=== PATIENT | male | born 1945 | race Caucasian/White ===

== ENCOUNTER 2016-11-13 00:02 | Inpatient (IN) | payer MEDICARE, OTHER ==
--- NOTE | ~2016-11-13 | CN ---
Consultation Report [facility] [address] [place]. [address] NAME: ROLANDO FONTAINE : 41 STATUS : ADM IN [facility]#: [id number] AGE: 71 ADM/REG DATE : 11/13/16 MR#: [id number] REPORT SERV DATE: 11/13/16 DICTATED BY: RUSS RHODES DATE: 11/13/16 REPORT STATUS : Draft TRANSCRIBED BY: MODL DATE: 11/13/16 DATE OF CONSULTATION: 11/13/2016 CHIEF COMPLAINT: Chest and jaw pain. HISTORY OF PRESENT ILLNESS: Mr. Fontaine is a 71-year-old man with a history of prior coronary artery disease and chronic atrial fibrillation. He presented to the emergency room for chest and jaw pain which started last evening. He currently is pain-free. He is ruled out for myocardial infarction. His EKG shows atrial fibrillation with a mildly rapid rate but no acute ischemic changes. No symptoms of dyspnea. No syncope or presyncope. PAST MEDICAL HISTORY: 1. Hypertension. 2. Hypercholesterolemia. 3. Nonsustained ventricular tachycardia. 4. Chronic atrial fibrillation. 5. History of renal cell carcinoma, status post nephrectomy. SOCIAL HISTORY: He does not smoke or drink alcohol. FAMILY HISTORY: There is no family history of early coronary artery disease. REVIEW OF SYSTEMS: A complete review of systems was obtained, which is negative in detail except as mentioned above in the HPI. ALLERGIES: INTOLERANCE TO BETA JOEY DUE TO IMPOTENCE. MEDICATIONS: Include Coumadin 5 mg daily, fish oil, hydralazine 25 mg daily, hydrochlorothiazide 25 mg daily, multivitamin, omeprazole 20 mg daily, pravastatin 40 mg daily, verapamil extended release 240 mg a day. PHYSICAL EXAMINATION: VITAL SIGNS: Blood pressure 130/70, heart rate of 90s and irregular, respiratory rate of 14. GENERAL: Comfortable in no acute distress. HEENT: Anicteric. No xanthelasma. Lips without cyanosis. NECK: No JVD. Carotids 2+ and symmetric. No carotid bruits. LUNGS: CTA bilaterally. No wheezes or rhonchi. No accessory muscle use. COR: Irregularly irregular. Normal S1 and S2. ABD: Soft, nontender, nondistended. Normal bowel sounds. No abdominal bruits. EXT: No clubbing, cyanosis or edema 2+ and symmetric distal pulses. SKIN: Warm. Dry. No venous stasis changes. Consultation Report [facility] [address] [place]. [address] NAME: ROLANDO FONTAINE : 41 STATUS : ADM IN PAT#: [id number] AGE: 71 ADM/REG DATE : 11/13/16 MR#: [id number] REPORT SERV DATE: 11/13/16 DICTATED BY: RUSS RHODES DATE: 11/13/16 REPORT STATUS : Draft TRANSCRIBED BY: MODL DATE: 11/13/16 MS: No kyphosis. NEURO/PSYCH: Oriented x3. No anxiety or depression. LABORATORY STUDIES: INR of 2.4. Troponin is negative. White count of 7, hematocrit of 40. Creatinine of 1.6. EKG: A 12-lead EKG shows atrial fibrillation, rate of 82 beats per minute. Nonspecific T- wave abnormalities noted. IMPRESSION: This is a 71-year-old man with a history of hypertension, hypercholesterolemia, and chronic atrial fibrillation, on Coumadin and with a rate control strategy. He may need to have his verapamil increased from 240 to 360 mg daily for better rate control. So far, he has ruled out for myocardial infarction. I have recommended both an echocardiogram and a stress test. Further evaluation pending these studies. JOHN/FATEMEH Russ Rhodes M.D. / [id number] CC: Kavya Carter M.D.
--- NOTE | ~2016-11-13 | HP ---
History And Physical [facility] [place]. [address] NAME: ROLANDO WICK : 41 STATUS : ADM Twan PAT#: [id number] AGE: 71 ADM/REG DATE : 11/13/16 MR#: [id number] REPORT SERV DATE: 11/13/16 DICTATED BY: LAY DOUGLAS DATE: 11/13/16 REPORT STATUS : Draft TRANSCRIBED BY: MODL DATE: 11/13/16 DATE OF ADMISSION: 11/13/2016 CHIEF COMPLAINT: A 71-year-old male presenting with jaw pain and chest pain. HISTORY OF PRESENTING ILLNESS: The patient's history was obtained through careful interview with the patient, , and two daughters, coupled with review of [facility] medical records. Just on the night leading up to admission, the patient developed new right-sided jaw pain that did radiate into the left throat on the top of the left chest. Had throbbing quality, "worse than a toothache," 12/10 severity. He has had no shortness of breath, but he has had dizziness and "lost my bearings," and has had nausea and one episode of vomiting. There is no heaviness over the chest. No abdominal pain. No palpitations. He states "my head does not feel good," but there is no actual headache or lightheadedness (despite the dizziness that he describes). REVIEW OF SYSTEMS: Otherwise, a 14-point review of systems was obtained and was negative. PAST MEDICAL HISTORY: 1. Coronary artery disease? but he states he has never had a stent placed. He has been followed by Dr. Baron. 2. Atrial fibrillation, on chronic Coumadin. 3. Hematuria, followed by Dr. Roberts. 4. Benign prostatic hypertrophy. 5. Elevated cholesterol. 6. Gastroesophageal reflux disorder. 7. Left renal cell carcinoma in 2012, status post surgical resection. 8. Colon cancer, 2004, status post surgical resection, now followed by Dr. River. 9. Chronic kidney disease stage 3. Baseline creatinine of 1.3 to 1.7. PAST SURGICAL HISTORY: 1. Partial colectomy for colon cancer. 2. Left renal cell carcinoma, nephrectomy. 3. Adrenalectomy on the left side. 4. TURP. 5. Right hand surgery x2. ALLERGIES: OXYBUTYNIN. SOCIAL HISTORY: No tobacco abuse. No alcohol abuse. Lives in [place], [place]. Is History And Physical [address] [address] NAME: ROLANDO WICK : 41 STATUS : ADM Twan PAT#: [id number] AGE: 71 ADM/REG DATE : 11/13/16 MR#: [id number] REPORT SERV DATE: 11/13/16 DICTATED BY: LAY DOUGLAS DATE: 11/13/16 REPORT STATUS : Draft TRANSCRIBED BY: FATEMEH DATE: 11/13/16 . Has two children. 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 FAMILY HISTORY: Mother at 85 years of age. Father with stroke. CURRENT MEDICATIONS: Include Tylenol, eye drops, capsaicin pad, hydrochlorothiazide 25 mg p.o. daily, hydralazine 75 mg p.o. b.i.d., omega-3 fatty acids, omeprazole 20 mg p.o. daily, potassium 20 mEq p.o. b.i.d., Pravachol 40 mg p.o. daily, verapamil sustained release 240 mg p.o. daily, Coumadin 1 mg as needed and 5 mg in the evening. PHYSICAL EXAMINATION: VITAL SIGNS: Temperature 98.2, pulse 70, blood pressure 172/98, respiratory rate 18, and O2 saturation 98% on room air. GENERAL: A pleasant, cooperative male still having jaw pain. HEENT: The jaw pain is not reproduced by palpation of his jaw and there is no swelling around his jaw or anything on oral examination to suggest dental caries or dental abscess for example. Pupils equal, round, and reactive to light. No conjunctival pallor. No scleral icterus. Nares are patent. Oropharynx is clear of obstruction. Moist mucous membranes. NECK: Trachea midline. No thyromegaly. LYMPH: No cervical lymphadenopathy. No supraclavicular lymphadenopathy. RESPIRATORY: Clear to auscultation at bases. No wheezes, rales, or rhonchi. Normal respiratory effort. CARDIOVASCULAR: Irregularly irregular. No murmurs, rubs, or gallops. No extremity edema is appreciated. ABDOMEN: Soft, nontender, nondistended. Normal bowel sounds auscultated throughout. No hepatosplenomegaly. DERMATOLOGICAL: Warm and dry extremities. No pallor, no cyanosis. PSYCHIATRIC: Notably flat affect. Irritable mood. Alert and oriented x3. LABORATORY DATA: INR 2.4. Troponin negative. Liver enzymes within normal limits. White blood cell count 7.0, hemoglobin 13, hematocrit 40, platelets 200. Sodium 143, potassium 3.4, chloride 106, bicarb 31, BUN 23, creatinine 1.6, glucose 104. Urinalysis negative for infection. STUDIES: 1. Chest x-ray by my own evaluation shows cardiomegaly, but no definite acute cardiopulmonary process. 2. EKG by my own evaluation shows atrial fibrillation, incomplete right bundle-branch block, left anterior fascicular block. ASSESSMENT AND PLAN: 1. Chest pain, jaw pain. Check stress test. Add aspirin. 2. Atrial fibrillation, chronic. Check telemetry. Continue Coumadin. 3. Chronic kidney disease stage 3 with solitary kidney. Monitor closely. 4. Hypokalemia. Replace potassium. Check magnesium. History And Physical [address] [address] NAME: ROLANDO WICK : 41 STATUS : ADM Twan PAT#: [id number] AGE: 71 ADM/REG DATE : 11/13/16 MR#: [id number] REPORT SERV DATE: 11/13/16 DICTATED BY: LAY DOUGLAS DATE: 11/13/16 REPORT STATUS : Draft TRANSCRIBED BY: FATEMEH DATE: 11/13/16 KPL/FATEMEH Lay Douglas M.D. / [id number] CC: Monroe Esqueda MD William Warren, M.D.
--- NOTE | ~2016-11-13 | CN ---
Consultation Report [facility] [address] [place]. [address] NAME: ROLANDO FONTAINE : 41 STATUS : ADM IN [facility]#: [id number] AGE: 71 ADM/REG DATE : 11/13/16 MR#: [id number] REPORT SERV DATE: 11/14/16 DICTATED BY: DONAL MARIN DATE: 11/14/16 REPORT STATUS : Draft TRANSCRIBED BY: MODL DATE: 11/14/16 NEPHROLOGY CONSULTATION DATE OF CONSULTATION: 11/14/2016 INDICATION FOR CONSULTATION: CKD 3 with solitary kidney and need for cardiac cath. HISTORY OF PRESENT ILLNESS: Mr. Fontaine is a 71-year-old male who presented to the emergency room with chest pain and jaw pain that occurred spontaneously at rest. He has subsequently undergone echocardiogram with ejection fraction that had decreased to 32% and has undergone a nuclear cardiac scan. He is now scheduled for cardiac cath when his INR is corrected. He has been on chronic Coumadin therapy for atrial fibrillation. His creatinine ranged between 1.37 to 1.66 during this hospitalization. He underwent left nephrectomy and adrenalectomy in 2012 for renal cell carcinoma. MEDICATIONS: Include hydrochlorothiazide and omeprazole. PAST MEDICAL HISTORY: CKD stage 3, baseline creatinine 1.3 to 1.6, status post left nephrectomy for renal cell cancer in 2012, atrial fibrillation on chronic Coumadin therapy, hypertension, hyperlipidemia, cardiomyopathy ejection fraction of 32%, colon cancer, status post resection of skin cancers, herniorrhaphy, gastroesophageal reflux disease, BPH requiring TURP, multiple drug intolerances. FAMILY HISTORY: Father at age 66 with history of hypertension, CVA, with cause of being CVA. Paternal father with hypertension. Paternal uncles with hypertension. No history of end-stage renal disease. SOCIAL HISTORY: The patient is with good family support. No use of alcohol, drugs, or tobacco products. He is a retired cable worker helper. ALLERGIES: TO NEXIUM AND DITROPAN. HOME MEDICATIONS: Refresh eyedrops, capsaicin topical patch, hydrochlorothiazide, Apresoline, ketorolac ophthalmic solution, ofloxacin ophthalmic solution, fish oil, omeprazole, potassium, Pravachol, prednisone, prednisolone ophthalmic solution, verapamil SR, Coumadin. REVIEW OF SYSTEMS: HEENT: Eyes, no change in visual acuity. No epistaxis. No otic infection. No pharyngitis. PULMONARY: Notes occasional shortness of breath. No hemoptysis. CARDIAC: Recent chest pain. No lower extremity edema. GI: No nausea, vomiting, or melena. : No gross hematuria, dysuria, pyuria. Consultation Report [facility] [address] [place]. [address] NAME: ROLANDO FONTAINE : 41 STATUS : ADM IN [facility]#: [id number] AGE: 71 ADM/REG DATE : 11/13/16 MR#: [id number] REPORT SERV DATE: 11/14/16 DICTATED BY: DONAL MARIN DATE: 11/14/16 REPORT STATUS : Draft TRANSCRIBED BY: MODL DATE: 11/14/16 MUSCULOSKELETAL: Pain in knees. INTEGUMENT: No rash. No itching. NEUROLOGIC: No seizure activity or lateralizing weakness. Remainder of 12-point review of systems is negative. PHYSICAL EXAMINATION: VITAL SIGNS: Blood pressure 137/75, temp 99.4, respiratory rate 16, and pulse 68. HEENT: Eyes, no scleral icterus. Pupils equal, reactive to light. Extraocular movement intact. Nares patent. No discharge. Throat, no injection. Mucous membranes are moist. NECK: No thyromegaly, masses, bruits. CHEST/LUNGS: Late crackles posteriorly. No dullness to percussion. No wheezes. CARDIAC: Regular rate and rhythm. Questionable 1/6 systolic ejection murmur. No gallop or rub. ABDOMEN: Supple. Normoactive bowel sounds. Nontender. No hepatosplenomegaly. /RECTAL: Not performed. EXTREMITIES: No edema. DERMIS: No rash. No skin lesions. NEUROLOGIC: Cranial nerves intact. No lateralizing weakness. MUSCULOSKELETAL: No deformity. No joint effusion. IMPRESSION: 1. Chronic kidney disease stage 3, with solitary functioning right kidney. 2. Chest pain, possible acute coronary syndrome. 3. Status post left nephrectomy for renal cell cancer in 2012. 4. Atrial fibrillation. Coumadin held for cardiac cath. Vitamin K administered. 5. Hypertension. 6. Dyslipidemia. 7. Cardiomyopathy, ejection fraction of 32%. 8. Colon cancer, status post resection. 9. Herniorrhaphy. 10.Gastroesophageal reflux disease. 11.Benign prostatic hyperplasia, status post TURP. PLAN: 1. Okay for catheterization. 2. IV fluids. 3. Mucomyst. 4. Labs. CG/MODL Donal Consultation Report [facility] [address] [place] [address] NAME: ROLANDO FONTAINE : 41 STATUS : ADM IN PAT#: [id number] AGE: 71 ADM/REG DATE : 11/13/16 MR#: [id number] REPORT SERV DATE: 11/14/16 DICTATED BY: DONAL MARIN DATE: 11/14/16 REPORT STATUS : Draft TRANSCRIBED BY: MODL DATE: 11/14/16 Monroe Marin / [id number] CC: Monroe Esqueda MD
--- NOTE | ~2016-11-13 | CN ---
Consultation Report [facility] [address] [place]. [address] NAME: ROLANDO WICK : 41 STATUS : DIS IN PAT#: [id number] AGE: 71 ADM/REG DATE : 11/13/16 MR#: [id number] REPORT SERV DATE: 11/17/16 DICTATED BY: ALY GOODMAN DATE: 11/17/16 REPORT STATUS : Draft TRANSCRIBED BY: MODL DATE: 11/17/16 INFECTIOUS DISEASE CONSULT DATE OF CONSULTATION: REASON FOR REFERRAL: Evaluation and treatment of possible arm infection. HISTORY OF PRESENT ILLNESS: This patient is a 71-year-old male with a history of hyperlipidemia, chronic renal insufficiency, colon cancer which was resected in 2004 with normal followup since then. He has chronic atrial fibrillation, for which he is on Coumadin, and has coronary artery disease, though he has not had any interventions in the past. He came in with pain that had been going on for several days in his right jaw. It was exacerbated by movement of opening the jaw. He denied any trauma or injury to that area. There is nothing visible on the outer skin. Because the pain was radiating down into his shoulder and chest, he had potential heart disease focused on his possible etiology first and underwent a workup with no findings of ischemia or myocardial infarction. He was thought to be ready to go home, though he was still complaining of the pain yesterday, when he had a fever and began to complain of pain in his left arm antecubital fossa at the site of an old IV, it was warm and red, was imaged, and no abscess was found. He was started on vancomycin and cefepime. He has had no more fever and feels like the arm is better today, but the pain continues in his jaw. PAST MEDICAL HISTORY: Otherwise, unremarkable. MEDICATIONS: As described above. ALLERGIES: FAR ANTIBIOTICS, HE HAS NO KNOWN ANTIMICROBIAL ALLERGIES. SOCIAL HISTORY: He is retired, . His was with him in the room. He is a nonsmoker. Has no history of alcohol or substance abuse. FAMILY HISTORY: Noncontributory. PHYSICAL EXAMINATION: GENERAL: Nontoxic, elderly male, in no acute distress. Alert and oriented x3. VITAL SIGNS: Temperature today 99, pulse 98, respirations 16, and blood pressure 170/95. Weight 92 kg. HEENT: Sclerae are clear. No lesions within the mouth. He does have popping in the TMJ when he opens his jaw, but I do not feel any mass. There is no visible warmth or redness exteriorly. NECK: Supple without lymphadenopathy. LUNGS: Clear. HEART: Regular rate and rhythm. ABDOMEN: Soft, nontender. Positive bowel sounds. Consultation Report [facility] [address] [place]. [address] NAME: ROLANDO WICK : 41 STATUS : DIS IN PAT#: [id number] AGE: 71 ADM/REG DATE : 11/13/16 MR#: [id number] REPORT SERV DATE: 11/17/16 DICTATED BY: ALY GOODMAN DATE: 11/17/16 REPORT STATUS : Draft TRANSCRIBED BY: FATEMEH DATE: 11/17/16 EXTREMITIES: In the left antecubital fossa, there is some mild warmth and redness, some firmness around the vein, but no fluctuance. No cord. He has some bruising around the IV in the right antecubital fossa. LABORATORY DATA: White blood cell count 6.5, hematocrit 32.6, and platelets 201, normal differential on the white blood cell count. BUN and creatinine are 19 and 1.33. Blood cultures taken yesterday are negative. IMPRESSION: 1. Fever. I feel it is due to thrombophlebitis that is most likely a chemical process due to an infiltrated IV and I doubt it is actually infected. 2. Jaw pain. I do not think this is related to an infection, possibly a problem in his temporomandibular joint. RECOMMENDATIONS: 1. Stop antibiotics. After the next dose, we will substitute Zyvox for vancomycin, discontinue the cefepime, and then remove the IV. 2. Agree with the CT of the jaw, and then if nothing acute is seen, I feel that he could be discharged later today. 3. Followup with me will be pjermaine MARTINEZ/FATEMEH Aly Goodman M.D. / [id number] CC: Monroe Esquedaegler, MD
--- NOTE | ~2016-11-13 | DS ---
Discharge Summary [facility] [address] [place]. [address] NAME: ROLANDO WICK : 41 STATUS : DIS IN PAT#: [id number] AGE: 71 ADM/REG DATE : 11/13/16 MR#: [id number] REPORT SERV DATE: 11/17/16 DICTATED BY: SHARON DO DATE: 11/17/16 REPORT STATUS : Draft TRANSCRIBED BY: MODL DATE: 11/17/16 ADMISSION DATE: 11/13/2016 DISCHARGE DATE: 11/17/2016 DIAGNOSES ON ADMISSION: 1. Chest pain and jaw pain. 2. Atrial fibrillation, chronically on Coumadin. 3. Chronic kidney disease stage 3 with solitary kidney. 4. Hypokalemia. 5. History of partial colectomy for colon cancer in the past. 6. History of left renal cell carcinoma, status post nephrectomy. 7. History of adrenalectomy on the left side. DIAGNOSES ON DISCHARGE: 1. New-onset congestive heart failure, nonischemic cardiomyopathy with an ejection fraction of 35%, status post coronary arteriogram showing nonischemic cardiomyopathy, no blockages in the heart. 2. Right-sided jaw pain, improved. Negative CT scan on the jaw. If continues, follow up with Dr. Givens and with oral dental surgeon outpatient. 3. Left arm cellulitis in the antecubital fossa secondary to IV, improved. 4. Fever secondary to cellulitis, resolved. 5. Chronic kidney disease, creatinine at baseline. 6. Atrial fibrillation, rate controlled. 7. Anticoagulation with Coumadin for atrial fibrillation, continue. 8. Hypertension, controlled. IMAGING STUDIES DONE DURING THIS HOSPITALIZATION: 1. Stress test done on 11/13/2016 showed decreased ejection fraction, but no evidence of ischemia, although coronary arteriogram, no evidence of any blockages. 2. Left upper extremity venous duplex ultrasound showed superficial thrombosis on the left upper extremity on the distal cephalic vein secondary to IV. 3. CT of the brain done on 11/17/2016, no acute intracranial pathology. 4. CT of the face including right-sided temporomandibular joint, no acute intracranial pathology, normal facial bones, no abnormality in the temporomandibular joints. 5. Chest x-ray on 11/16 showed some volume overload with a CHF pattern. CONSULTANTS ON THE CASE: Feed Mill Tender, Dr. Baron and Dr. Marinelli, and also Dr. Nunez, cheese production supervisor before coronary arteriography, and Dr. Barry was asked to see the patient for fever secondary to superficial cellulitis on the left upper extremity. HISTORY OF PRESENT ILLNESS: Briefly, this is a very pleasant 71-year-old male, who was admitted by my colleague, Dr. Lopez, on 11/13/2016 with chest pain and jaw pain. For the details, see history of present illness dictated by Dr. Lopez on 11/13/2016. HOSPITAL COURSE: Briefly, the patient was seen by me next day, and also prospecting observer was consulted. There was a concern of acute coronary syndrome, so the patient had stress test Discharge Summary [address] [place]. [address] NAME: ROLANDO WICK : 41 STATUS : DIS IN PAT#: [id number] AGE: 71 ADM/REG DATE : 11/13/16 MR#: [id number] REPORT SERV DATE: 11/17/16 DICTATED BY: SHARON DO DATE: 11/17/16 REPORT STATUS : Draft TRANSCRIBED BY: FATEMEH DATE: 11/17/16 done per prospecting observer, Dr. Baron and it came back a moderate risk and he was also found to have new-onset congestive heart failure, systolic dysfunction. Dr. Baron recommended coronary arteriogram, which was done next day, and it did not show any blockages, as well as prospecting observer, Dr. Marinelli rounded on the patient next day and Dr. Marinelli recommended the patient to change his verapamil SR to 120 mg p.o. twice a day, instead of 240 daily which he was taking before, as well as he recommended to increase his Coreg to 12.5 p.o. b.i.d., but the patient was reluctant to take Coreg 12.5 b.i.d., he wanted to continue taking 6.25 p.o. b.i.d. It was explained to the patient that Coreg is necessary for heart rate control, he still wants to be on 6.25 p.o. b.i.d. It was explained to his and daughter that if necessary, to take in that dose. The patient said that they will measure heart rate and blood pressure and try to control it and if necessary, they will increase to 12.5 p.o. b.i.d. Also, Dr. Marinelli recommended the patient to be on Imdur 30 mg a day and continue hydralazine at 75 mg p.o. b.i.d. The patient reported that his blood pressure was fluctuating at home. I told the patient that he needs to measure his blood pressures three times a day and he needs to take his hydralazine depending on his blood pressure. It was recommended to hold hydralazine if systolic blood pressure less than 120, to take half of the pill if it is less than 140, and to take the full dose if it is above. Also, Dr. Marinelli did not recommend to continue spironolactone. It was recommended to continue his Coumadin at a home dose of 5 mg a day and check PT/INR per Dr. Miya Givens on Saturday. Continue his ofloxacin ophthalmic drops four times a day. Continue omega-3 fatty acids, pravastatin 40 a day, prednisolone Forte one drop four times a day, Coumadin 5 mg a day and additional 1 mg as needed, verapamil SR 120 p.o. b.i.d., Coreg 12.5 p.o. b.i.d., hydralazine 75 p.o. b.i.d., HCTZ 25 mg a day, ketorolac ophthalmic drops four times a day, artificial tears daily, potassium 20 mEq p.o. b.i.d., Tylenol 1300 twice a day, omeprazole 20 a day, and capsaicin patch daily. He needs to follow up with Dr. Baron on 12/13. Regarding the patient's jaw pain, the patient was complaining of jaw pain since the admission, but there was not any infection found and the patient had a CT scan on the jaw, which did not show any abnormality. Today, his jaw pain resolved. He still says that he may have some discomfort later. He was recommended to follow up with Dr. Givens and also with oral dental surgeon to evaluate his jaw if the pain will continue on the right side. Chronic atrial fibrillation was rate controlled. Chronic kidney disease, creatinine was in stable range after coronary arteriogram. He was evaluated by cheese production supervisor before coronary arteriogram. Creatinine looks good. Left arm cellulitis, which started yesterday. It was related to peripheral IV. There was a mild superficial clot on ultrasound, but there was no deep vein thrombosis. The patient had fever spikes yesterday, and he was started on intravenous antibiotics as well as blood cultures were drawn yesterday and the results came back negative today. Today, his fever resolved. One of the blood cultures still pending, so we will follow up on it tomorrow. His fever resolved. Dr. Barry saw this patient today in consult as Infectious Disease. He recommended to discontinue cefepime and vancomycin, gave him one dose of Zyvox, and he recommended the patient to be discharged today. If any fever or any increase in swelling or Discharge Summary [facility] [address] [facility] [place]. [address] NAME: ROLANDO WICK : 43 STATUS : DIS IN PAT#: [id number] AGE: 71 ADM/REG DATE : 11/13/16 MR#: [id number] REPORT SERV DATE: 11/17/16 DICTATED BY: SHARON DO DATE: 11/17/16 REPORT STATUS : Draft TRANSCRIBED BY: FATEMEH DATE: 11/17/16 redness, the patient was recommended to follow up with his primary care physician or to come to emergency room. I had a long discussion with the patient, his daughter, and his regarding the plan of treatment regarding his blood pressure medications and regarding potassium supplementation. It was also recommended the patient to follow up with Dr. Miya Givens on 11/19/2016, to check a BMP, potassium level, specifically kidney function, and also check PT and INR. The patient was discharged in stable condition. There was not any shortness of breath. He was recommended also to be on a fluid restriction. I spent 45 minutes on discharge. DICTATED BY: Monroe Esqueda/FATEMEH Sharon Do M.D. / [id number] CC: Monroe Esqueda MD William Warren, M.D.
[~2016-11-13 00:02] MED LIST: ALEVE220 MG PO; ARTHRITIS TOP; ASAB PO; ATEN25 PO; C25 PO; C5; DSS PO; FLOMAX4 PO; HYDROCHLOROT25 MG PO; LOP25 PO; LOTE40 PO; NATURA2 OPH; PCET PO; PERCOCET1 TA2 PO; PRAVAC PO; PRAVACHOL40 MG PO; PRILO PO; SEV VITAMINS PO; T PO; VERELAN360 MG PO
[2016-11-13] MEDS ORDERED: VERELAN240 MG PO (00:33)
[2016-11-13] MEDS ORDERED: HYDROCHLOROT25 MG PO (00:34)
[2016-11-13] MEDS ORDERED: APRES50 PO (00:34)
[2016-11-13] MEDS ORDERED: PRAVACHOL40 MG PO (00:34)
[2016-11-13] MEDS ORDERED: C5 PO (00:35)
[2016-11-13] MEDS ORDERED: C1 PO (00:36)
[2016-11-13] MEDS ORDERED: ACULAR OPH (00:37)
[2016-11-13] MEDS ORDERED: OCUFLOX OPH (00:37)
[2016-11-13] MEDS ORDERED: REFRESH OPH SO0.3 ML OPH (00:38)
[2016-11-13] MEDS ORDERED: 8 HOUR650 MG PO (00:39)
[2016-11-13] MEDS ORDERED: PREDFORTE OPH (00:39)
[2016-11-13] MEDS ORDERED: KDUR20 PO (00:39)
[2016-11-13] MEDS ORDERED: FISH OIL1200 MG PO (00:39)
[2016-11-13] MEDS ORDERED: PRILOSEC OTC20 MG PO (00:40)
[2016-11-13] MEDS ORDERED: SALONPAS-HOT TOP (00:41)
[2016-11-13 00:55] LABS: CPK 90 U/L (0-200); TROPONIN I <0.02 NG/ML (<0.05)
[2016-11-13 00:58] LABS: CK-MB 1.4 NG/ML
[2016-11-13 06:45] LABS: BASOPHILS 0.1 %; BASOPHILS ABSOLUTE 0.01 10/3/uL (0.0-0.16); EOSINOPHILS 0.1 %; EOSINOPHILS ABSOLUTE 0.01 10/3/uL (0.0-0.53); HEMATOCRIT 39.3 % (40.0-51.0); HEMOGLOBIN 13.2 g/dL (13.6-17.8); IMMATURE GRANULOCYTES 0.3 %; IMMATURE GRANULOCYTES ABSOLUTE 0.03 10/3/uL (0.0-0.11); LYMPHOCYTES 6.4 %; LYMPHOCYTES ABSOLUTE 0.62 10/3/uL (0.67-4.30); MANUAL DIFF NO %; MEAN CORPUS HGB CONC 33.6 g/dL (32.0-36.0); MEAN CORPUSCULAR HEMOGLOB 30.8 pg (26.0-34.0); MEAN CORPUSCULAR VOLUME 91.8 fL (80-100); MEAN PLATELET VOLUME 10.3 fL (9.2-13.0); MONOCYTES 9.1 %; MONOCYTES ABSOLUTE 0.89 10/3/uL (0.21-1.20); NEUTROPHILS ABSOLUTE 8.18 10/3/uL (2.02-8.40); PLATELET COUNT 198 10/3/uL (150-400); RBC DISTRIBUTION WIDTH 14.2 % (12.0-16.0); RED CELL COUNT 4.28 10/6/uL (4.7-6.1); WHITE BLOOD CELLS 9.7 10/3/uL (4.5-10.5)
[2016-11-13 06:51] LABS: INTERNATIONAL NORMAL RATI 2.3 UNITS (-)
[2016-11-13 06:52] LABS: PARTIAL THROMBO TIME 38.7 SEC (22.5-37.2); PROTIME (NOT ORD) 24.9 SEC (12.0-14.5)
[2016-11-13 07:11] LABS: A/G RATIO 1.1 (0.7-1.9); ALBUMIN 3.5 G/DL (3.5-5.0); ALKALINE PHOSPHATASE 66 U/L (45-117); BUN (BLOOD UREA NITROGEN) 20 MG/DL (6-23); CHLORIDE, SERUM 104 MMOL/L (96-112); CO2 (CARBON DIOXIDE) 31 MMOL/L (24-34); CREATININE 1.37 MG/DL (0.70-1.30); GFR AFRICAN AMERICAN 59 ML/MIN (>=60); GFR NON AFRICAN AMERICAN 51 ML/MIN (>=60); GLOBULIN 3.3 G/DL (2.5-4.1); GLUCOSE, SERUM 157 MG/DL (60-99); POTASSIUM, SERUM 3.5 MMOL/L (3.5-5.3); SGOT(AST) 14 U/L (5-40); SGPT(ALT) 25 U/L (5-65); SODIUM, SERUM 142 MMOL/L (135-148); TOTAL BILIRUBIN 0.6 MG/DL (0-1.2); TOTAL PROTEIN 6.8 G/DL (6.0-8.5); TROPONIN I 0.02 NG/ML (<0.05); ULTRASENSITIVE TSH 0.448 MCIU/ML (0.358-3.740)
[2016-11-14 04:33] LABS: BASOPHILS 0.2 %; BASOPHILS ABSOLUTE 0.02 10/3/uL (0.0-0.16); EOSINOPHILS 0.1 %; EOSINOPHILS ABSOLUTE 0.01 10/3/uL (0.0-0.53); HEMATOCRIT 37.9 % (40.0-51.0); HEMOGLOBIN 12.7 g/dL (13.6-17.8); IMMATURE GRANULOCYTES 0.2 %; IMMATURE GRANULOCYTES ABSOLUTE 0.02 10/3/uL (0.0-0.11); LYMPHOCYTES 11.6 %; LYMPHOCYTES ABSOLUTE 1.11 10/3/uL (0.67-4.30); MEAN CORPUS HGB CONC 33.5 g/dL (32.0-36.0); MEAN CORPUSCULAR HEMOGLOB 30.9 pg (26.0-34.0); MEAN CORPUSCULAR VOLUME 92.2 fL (80-100); MEAN PLATELET VOLUME 10.1 fL (9.2-13.0); MONOCYTES 18.6 %; MONOCYTES ABSOLUTE 1.78 10/3/uL (0.21-1.20); NEUTROPHILS 69.3 %; NEUTROPHILS ABSOLUTE 6.65 10/3/uL (2.02-8.40); PLATELET COUNT 177 10/3/uL (150-400); RBC DISTRIBUTION WIDTH 14.3 % (12.0-16.0); RED CELL COUNT 4.11 10/6/uL (4.7-6.1); WHITE BLOOD CELLS 9.6 10/3/uL (4.5-10.5)
[2016-11-14 04:35] LABS: MANUAL DIFF NO %
[2016-11-14 04:43] LABS: INTERNATIONAL NORMAL RATI 2.4 UNITS (-); PROTIME (NOT ORD) 26.3 SEC (12.0-14.5)
[2016-11-14 04:51] LABS: CALCIUM, SERUM 8.5 MG/DL (8.5-10.4); CHLORIDE, SERUM 101 MMOL/L (96-112); CHOL/HDL RATIO(NOT ORDER) 1.9 (0-5); CHOLESTEROL 86 MG/DL (< 200); CO2 (CARBON DIOXIDE) 27 MMOL/L (24-34); CREATININE 1.66 MG/DL (0.70-1.30); GFR AFRICAN AMERICAN 47 ML/MIN (>=60); GFR NON AFRICAN AMERICAN 40 ML/MIN (>=60); HDL CHOLESTEROL 46 MG/DL (> 39); LDL CHOLESTEROL 28 MG/DL (< 130); NON-HDL CHOLESTEROL 40 MG/DL (< 160); POTASSIUM, SERUM 3.5 MMOL/L (3.5-5.3); SODIUM, SERUM 136 MMOL/L (135-148); TRIGLYCERIDE 60 MG/DL (< 150)
[2016-11-14 04:56] LABS: BUN (BLOOD UREA NITROGEN) 24 MG/DL (6-23); GLUCOSE, SERUM 108 MG/DL (60-99)
[2016-11-14 23:18] LABS: TROPONIN I 0.02 NG/ML (<0.05)
[2016-11-14 23:19] LABS: CK-MB < 0.5 NG/ML; CPK 56 U/L (0-200)
[2016-11-15 03:58] LABS: BASOPHILS 0.1 %; BASOPHILS ABSOLUTE 0.01 10/3/uL (0.0-0.16); EOSINOPHILS 0.6 %; EOSINOPHILS ABSOLUTE 0.05 10/3/uL (0.0-0.53); HEMOGLOBIN 11.8 g/dL (13.6-17.8); IMMATURE GRANULOCYTES 0.4 %; IMMATURE GRANULOCYTES ABSOLUTE 0.03 10/3/uL (0.0-0.11); LYMPHOCYTES 8.9 %; LYMPHOCYTES ABSOLUTE 0.76 10/3/uL (0.67-4.30); MEAN CORPUS HGB CONC 33.7 g/dL (32.0-36.0); MEAN CORPUSCULAR HEMOGLOB 30.6 pg (26.0-34.0); MEAN CORPUSCULAR VOLUME 90.9 fL (80-100); MEAN PLATELET VOLUME 9.9 fL (9.2-13.0); MONOCYTES 16.5 %; MONOCYTES ABSOLUTE 1.41 10/3/uL (0.21-1.20); NEUTROPHILS 73.5 %; NEUTROPHILS ABSOLUTE 6.29 10/3/uL (2.02-8.40); PLATELET COUNT 166 10/3/uL (150-400); RBC DISTRIBUTION WIDTH 13.7 % (12.0-16.0); RED CELL COUNT 3.85 10/6/uL (4.7-6.1); WHITE BLOOD CELLS 8.6 10/3/uL (4.5-10.5)
[2016-11-15 03:59] LABS: MANUAL DIFF NO %
[2016-11-15 04:04] LABS: INTERNATIONAL NORMAL RATI 1.6 UNITS (-)
[2016-11-15 04:08] LABS: PROTIME (NOT ORD) 18.5 SEC (12.0-14.5)
[2016-11-15 04:20] LABS: BUN (BLOOD UREA NITROGEN) 25 MG/DL (6-23); CALCIUM, SERUM 8.6 MG/DL (8.5-10.4); CHLORIDE, SERUM 102 MMOL/L (96-112); CHOL/HDL RATIO(NOT ORDER) 2.3 (0-5); CHOLESTEROL 93 MG/DL (< 200); CO2 (CARBON DIOXIDE) 27 MMOL/L (24-34); CREATININE 1.59 MG/DL (0.70-1.30); GFR AFRICAN AMERICAN 49 ML/MIN (>=60); GFR NON AFRICAN AMERICAN 42 ML/MIN (>=60); GLUCOSE, SERUM 116 MG/DL (60-99); HDL CHOLESTEROL 41 MG/DL (> 39); LDL CHOLESTEROL 40 MG/DL (< 130); NON-HDL CHOLESTEROL 52 MG/DL (< 160); POTASSIUM, SERUM 3.9 MMOL/L (3.5-5.3); SODIUM, SERUM 136 MMOL/L (135-148); TRIGLYCERIDE 60 MG/DL (< 150)
[2016-11-16 05:08] LABS: BASOPHILS 0.1 %; BASOPHILS ABSOLUTE 0.01 10/3/uL (0.0-0.16); EOSINOPHILS 0.8 %; EOSINOPHILS ABSOLUTE 0.06 10/3/uL (0.0-0.53); HEMATOCRIT 35.6 % (40.0-51.0); HEMOGLOBIN 11.9 g/dL (13.6-17.8); IMMATURE GRANULOCYTES 0.3 %; IMMATURE GRANULOCYTES ABSOLUTE 0.02 10/3/uL (0.0-0.11); LYMPHOCYTES 10.4 %; LYMPHOCYTES ABSOLUTE 0.76 10/3/uL (0.67-4.30); MEAN CORPUS HGB CONC 33.4 g/dL (32.0-36.0); MEAN CORPUSCULAR HEMOGLOB 30.8 pg (26.0-34.0); MEAN CORPUSCULAR VOLUME 92.2 fL (80-100); MEAN PLATELET VOLUME 9.9 fL (9.2-13.0); MONOCYTES 13.5 %; MONOCYTES ABSOLUTE 0.99 10/3/uL (0.21-1.20); NEUTROPHILS 74.9 %; NEUTROPHILS ABSOLUTE 5.48 10/3/uL (2.02-8.40); PLATELET COUNT 181 10/3/uL (150-400); RBC DISTRIBUTION WIDTH 13.7 % (12.0-16.0); RED CELL COUNT 3.86 10/6/uL (4.7-6.1); WHITE BLOOD CELLS 7.3 10/3/uL (4.5-10.5)
[2016-11-16 05:09] LABS: MANUAL DIFF NO %
[2016-11-16 05:22] LABS: ALBUMIN 2.9 G/DL (3.5-5.0); CALCIUM, SERUM 8.8 MG/DL (8.5-10.4); CHLORIDE, SERUM 102 MMOL/L (96-112); CO2 (CARBON DIOXIDE) 28 MMOL/L (24-34); CREATININE 1.35 MG/DL (0.70-1.30); GFR AFRICAN AMERICAN 60 ML/MIN (>=60); GFR NON AFRICAN AMERICAN 52 ML/MIN (>=60); GLUCOSE, SERUM 103 MG/DL (60-99); POTASSIUM, SERUM 3.9 MMOL/L (3.5-5.3); SODIUM, SERUM 135 MMOL/L (135-148)
[2016-11-16 05:23] LABS: BUN (BLOOD UREA NITROGEN) 21 MG/DL (6-23); PHOSPHORUS, SERUM 2.3 MG/DL (2.5-4.5)
[2016-11-16 05:51] LABS: INTERNATIONAL NORMAL RATI 1.5 UNITS (-)
[2016-11-16 12:17] LABS: ASCORBIC ACID (UR NOT ORDER) NEG (NEG); BILIRUBIN, URINE NEGATIVE (NEG); KETONE, URINE NEGATIVE (NEG); LEUKOCYTE ESTERASE(NOT OR NEG (NEG); WBC (NOT ORDERED) (RFLEX) 5 (0-5)
[2016-11-17 05:12] LABS: INTERNATIONAL NORMAL RATI 1.6 UNITS (-); PROTIME (NOT ORD) 18.8 SEC (12.0-14.5)
[2016-11-17 08:23] LABS: BASOPHILS 0 %; EOSINOPHILS 0.9 %; EOSINOPHILS ABSOLUTE 0.06 10/3/uL (0.0-0.53); HEMATOCRIT 32.6 % (40.0-51.0); IMMATURE GRANULOCYTES 0.2 %; IMMATURE GRANULOCYTES ABSOLUTE 0.01 10/3/uL (0.0-0.11); LYMPHOCYTES 8.4 %; LYMPHOCYTES ABSOLUTE 0.54 10/3/uL (0.67-4.30); MEAN CORPUS HGB CONC 33.7 g/dL (32.0-36.0); MEAN CORPUSCULAR HEMOGLOB 30.3 pg (26.0-34.0); MEAN CORPUSCULAR VOLUME 89.8 fL (80-100); MEAN PLATELET VOLUME 9.9 fL (9.2-13.0); MONOCYTES 16.9 %; MONOCYTES ABSOLUTE 1.09 10/3/uL (0.21-1.20); NEUTROPHILS 73.6 %; NEUTROPHILS ABSOLUTE 4.75 10/3/uL (2.02-8.40); PLATELET COUNT 201 10/3/uL (150-400); RBC DISTRIBUTION WIDTH 13.4 % (12.0-16.0); RED CELL COUNT 3.63 10/6/uL (4.7-6.1); WHITE BLOOD CELLS 6.5 10/3/uL (4.5-10.5)
[2016-11-17 08:27] LABS: MANUAL DIFF NO %
[2016-11-17 08:39] LABS: BUN (BLOOD UREA NITROGEN) 19 MG/DL (6-23); CALCIUM, SERUM 8.5 MG/DL (8.5-10.4); CHLORIDE, SERUM 106 MMOL/L (96-112); CO2 (CARBON DIOXIDE) 25 MMOL/L (24-34); CREATININE 1.33 MG/DL (0.70-1.30); GFR AFRICAN AMERICAN 61 ML/MIN (>=60); GFR NON AFRICAN AMERICAN 53 ML/MIN (>=60); GLUCOSE, SERUM 99 MG/DL (60-99); POTASSIUM, SERUM 3.8 MMOL/L (3.5-5.3); SODIUM, SERUM 135 MMOL/L (135-148)
[2016-11-17] MEDS ORDERED: COREG6 PO (14:06)
[2016-11-17] MEDS ORDERED: IMDUR120 PO (14:08)
[2016-11-17] MEDS ORDERED: VERELAN120 MG PO (14:10)
[2016-11-17] MEDS ORDERED: IMDUR30 PO (14:11)
[2017-03-14] MEDS ORDERED: COZ25 PO (15:35)
== END 2016-11-17 14:48 | disposition home or self-care (01) | DRG 287 ==
LOC: CDU1 00:02 → CDU2 00:08
PROVIDERS: Hospitalist; Internal Medicine Cardiovascular Disease; Nurse Practitioner Family
PROC: 4A023N7 Measurement of Cardiac Sampling and Pressure, Left Heart, Percutaneous Approach (ICD-10-PCS; principal; 2016-11-15)
PROC: B2111ZZ Fluoroscopy of Multiple Coronary Arteries using Low Osmolar Contrast (ICD-10-PCS; 2016-11-15)
PROC: B2151ZZ Fluoroscopy of Left Heart using Low Osmolar Contrast (ICD-10-PCS; 2016-11-15)
DX: I13.0 Hypertensive heart and chronic kidney disease with heart failure and stage 1 through stage 4 chronic kidney disease, or unspecified chronic kidney disease (principal); I47.2 Ventricular tachycardia; I42.0 Dilated cardiomyopathy; I48.2 Chronic atrial fibrillation; L03.114 Cellulitis of left upper limb; I50.22 Chronic systolic (congestive) heart failure; T80.1XXA Vascular complications following infusion, transfusion and therapeutic injection, initial encounter; R07.9 Chest pain, unspecified; E78.00 Pure hypercholesterolemia, unspecified; E78.5 Hyperlipidemia, unspecified; I25.10 Atherosclerotic heart disease of native coronary artery without angina pectoris; N18.3 Chronic kidney disease, stage 3 (moderate); E87.6 Hypokalemia; N40.0 Benign prostatic hyperplasia without lower urinary tract symptoms; Z82.49 Family history of ischemic heart disease and other diseases of the circulatory system; Z85.038 Personal history of other malignant neoplasm of large intestine; Z85.528 Personal history of other malignant neoplasm of kidney; Z79.01 Long term (current) use of anticoagulants; Z90.5 Acquired absence of kidney; Z90.49 Acquired absence of other specified parts of digestive tract
CPT/HCPCS: 70450; 70486; 71010; 78452; 80048; 80053; 80061; 80069; 81001; 82550; 82553; 83735; 83880; 84145; 84443; 84484; 85025; 85610; 85730; 87040; 93005; 93017; 93306; 93458; 93971; 99152; A9270-GY; C1769; C1887; C1894; J0360; J0692; J2250; J3010; J3370; J3430; Q9967

== ENCOUNTER 2016-11-19 13:15 | Inpatient (IN) | payer MEDICARE, OTHER ==
--- NOTE | ~2016-11-19 | HP ---
History And Physical [facility] [address] [place]. [address] NAME: ROLANDO FONTAINE : 41 STATUS : ADM IN PAT#: [id number] AGE: 71 ADM/REG DATE : 11/19/16 MR#: [id number] REPORT SERV DATE: 11/19/16 DICTATED BY: KIP IRENE DATE: 11/19/16 REPORT STATUS : Draft TRANSCRIBED BY: MODL DATE: 11/19/16 DATE OF ADMISSION: 11/19/2016 CARDIOLOGY ADMISSION NOTE ADMISSION DIAGNOSIS: Myocardial infarction. HISTORY OF PRESENT ILLNESS: Mr. Fontaine is a very pleasant 71-year-old male, who presented to [facility] via EMS with a diagnosis of acute anterolateral wall PR and was subsequently taken to the cardiac catheterization lab emergently. The patient is known to our group, followed by Dr. Baron and recently underwent a workup for a progressive cardiomyopathy. He actually underwent cardiac catheterization, performed by myself last week with findings only demonstrating nonobstructive CAD, felt to be an unlikely cause of his cardiomyopathy. Prior to that, he had a stress test that demonstrated no ischemia but was interpreted as high risk due to resting LV dysfunction. He has a chronic history of chronic atrial fibrillation, managed with anticoagulation with warfarin and renal cell carcinoma with prior nephrectomy and chronic kidney disease as a result. He did well initially after his diagnostic angiogram but his reports that he has been feeling poorly the last couple of days. This morning, he experienced discomfort in his chest and felt that urgent evaluation is necessary. EKG in the field was notable for prominent ST elevations in the lateral leads, prompting a Code STEMI. The case was discussed with the ER physician on-call and based on the description EKG and the patient's clinical history, I elected to bring him to the catheterization lab emergently. Upon arrival, he was in obvious discomfort and his EKG was suggestive of evolving anterolateral wall PR. Cardiac catheterization was performed and these findings are dictated separately but in summary demonstrated a culprit diagonal lesion correlating with the distribution of EKG abnormalities. This was successfully treated with a drug-eluting stent and the patient's chest pain resolved at the conclusion of the case. PAST MEDICAL HISTORY: 1. Hypertension. 2. Hyperlipidemia. 3. Chronic atrial fibrillation. 4. Nonsustained VT. 5. History of renal cell carcinoma, status post nephrectomy. 6. Chronic kidney disease. 7. History of colon cancer 2004, status post resection. 8. Benign prostatic hypertrophy. 9. Coronary artery disease, previously noted to be nonobstructive. SURGICAL HISTORY: Partial colectomy. Left nephrectomy. Adrenalectomy. Transurethral resection of the prostate. Hand surgery x2. History And Physical [address] [place]. [address] NAME: ROLANDO FONTAINE : 43 STATUS : ADM IN [facility]#: [id number] AGE: 71 ADM/REG DATE : 11/19/16 MR#: [id number] REPORT SERV DATE: 11/19/16 DICTATED BY: KIP IRENE DATE: 11/19/16 REPORT STATUS : Draft TRANSCRIBED BY: FATEMEH DATE: 11/19/16 ALLERGIES: DOCUMENTED TO OXYBUTYNIN. SOCIAL HISTORY: No history of tobacco, alcohol, or illicits. Lives in [place], [place]. FAMILY HISTORY: The patient's father had a stroke, otherwise noncontributory. MEDICATIONS: Full med list not available at the time of dictation, but previous medical record documents hydrochlorothiazide, hydralazine, omeprazole, Pravachol, sustained release verapamil, and warfarin. PHYSICAL EXAMINATION: VITAL SIGNS: Pulse is 80, blood pressure is 150/90, and respiratory rate 20. GENERAL: Uncomfortable appearing male. Speech nonlabored. HEENT: Sclerae are anicteric. Mucous membranes are moist. NECK: Supple. CARDIAC: Rhythm irregular. No murmur present. PULMONARY: Diminished breath sounds bilaterally but no rales or wheezes. ABDOMEN: Soft, nondistended, and nontender. EXTREMITIES: Warm. No edema. 2+ femoral pulse bilaterally. LABS: Full lab work pending at the time of dictation but preliminary INR is reported as 2.8 and creatinine 1.2. EKG in the field demonstrated sinus rhythm with prominent ST elevations in the lateral leads V3 through V6. Cardiac cath dictated separately, summarized in the HPI. IMPRESSION/RECOMMENDATIONS: 1. Acute anterolateral ST-elevation PR,status post primary PCI to culprit diagonal lesion. 2. Cardiomyopathy. 3. Chronic atrial fibrillation. 4. History of nonsustained VT. 5. Chronic kidney disease. 6. Hypertension. The patient will be admitted to the CCU for further management. He will be continued on his home medications, and Plavix will be added to his regimen. He is fully anticoagulated but thus far hemostasis achieved appears adequate. We will watch his access site closely but no compelling need to reverse anticoagulation at this time. Given his ACS presentation, it would be reasonable to treat him with a short course of triple therapy. We will transition him to Coumadin and Plavix in the near future to reduce his long-term bleeding risk. We will reassess his LV function with an echocardiogram given this clinical event and provide IV fluids to reduce the risk of contrast nephropathy Pancoast tension to his respiratory status. ESDRAS/FATEMEH History And Physical [address] [place] [place]. [address] NAME: ROLANDO FONTAINE : 43 STATUS : ADM IN [facility]#: [id number] AGE: 71 ADM/REG DATE : 11/19/16 MR#: [id number] REPORT SERV DATE: 11/19/16 DICTATED BY: KIP IRENE DATE: 11/19/16 REPORT STATUS : Draft TRANSCRIBED BY: FATEMEH DATE: 11/19/16 Kip Irene MD / [id number] CC: Kip Irene MD
--- NOTE | ~2016-11-19 | DS ---
Discharge Summary [facility] [address] [place]. [address] NAME: ROLANDO WICK : 41 STATUS : DIS IN PAT#: [id number] AGE: 71 ADM/REG DATE : 11/19/16 MR#: [id number] REPORT SERV DATE: 12/04/16 DICTATED BY: KIP IRENE DATE: 12/03/16 REPORT STATUS : Draft TRANSCRIBED BY: MODBjorn DATE: 12/03/16 Data Collection from hospitalization DISCHARGE DIAGNOSES: 1. ST-elevation myocardial infarction. 2. Coronary artery disease status post stent to the diagonal. 3. Ischemic cardiomyopathy. 4. Chronic atrial fibrillation. 5. Hypertension. CONSULTATIONS: None. PROCEDURES PERFORMED: 1. Cardiac catheterization and PCI, 11/19/2016. 2. Echocardiogram, 11/20/2016. MEDICATIONS: 1. Aspirin 81 mg daily x1 month then discontinue. 2. Lipitor 40 mg at bedtime. 3. Coreg 12.5 mg twice daily. 4. Plavix 75 mg daily. 5. Verelan 60 mg twice daily. 6. Lasix 20 mg daily. 7. Prinivil 5 mg daily. 8. Fish oil 1200 mg twice daily. 9. Prilosec 20 mg every morning. 10.Coumadin 4 mg every day or as directed by PCP. 11.Acular one drop to the right eye only four times daily. 12.Refresh one drop four times daily as needed to the left eye only. 13.Prednisone forte one drop three times daily to the right eye only. 14.K-Dur 20 mEq daily. 15.Tylenol 8 Hour 1300 mg twice daily. CONDITION AT DISCHARGE: Upon discharge, he did appear to be doing well and had no complaints. DISPOSITION: He was discharged home to continue a cardiac diet with activity as discussed. He was to follow up with Miya Givens on 11/26/2016 for INR and BMP check, and then follow up with Miya Givens for an appointment on 11/29/2016, follow up with Dr. Russ Baron for an appointment on 12/13/2016. HOSPITAL COURSE: This is a very pleasant 71-year-old male, who presented to the [facility] via EMS with diagnosis of an acute anterolateral wall AK and was subsequently taken to the cardiac curb and gutter laborer emergently. He was known to our group, followed by Dr. Baron and recently underwent a workup for progressive cardiomyopathy. He actually underwent cardiac catheterization performed by myself the week prior to this admission with findings only demonstrating nonobstructive coronary artery disease felt to be unlikely cause of his cardiomyopathy. Prior to that, he had a stress test that demonstrated no ischemia, but was Discharge Summary [facility] [address] [id number] [facility] [place]. [address] NAME: ROLANDO WICK : 41 STATUS : DIS IN PAT#: [id number] AGE: 71 ADM/REG DATE : 11/19/16 MR#: [id number] REPORT SERV DATE: 12/04/16 DICTATED BY: KIP IRENE DATE: 12/03/16 REPORT STATUS : Draft TRANSCRIBED BY: FATEMEH DATE: 12/03/16 interpreted as high risk due to resting LV dysfunction. He had a chronic history of chronic atrial fibrillation, managed with anticoagulation with warfarin and renal cell carcinoma with prior nephrectomy and chronic kidney disease as a result, he did well initially after his diagnostic angiogram, but his reported that he had been feeling poorly the last couple of days. On the morning of admission, he did experience discomfort in his chest and felt that urgent evaluation was necessary. EKG in the field was notable for prominent ST elevations in the lateral leads prompting a code STEMI. The case was discussed with the ER physician motion picture actor and based on the description EKG and the patient's clinical history, I elected to bring him to the catheterization lab emergently. Upon arrival, he was in obvious discomfort and his EKG was suggestive of evolving anterolateral wall myocardial infarction. Cardiac catheterization was performed and these findings were dictated separately, but in summary demonstrated a culprit diagonal lesion correlating with the distribution of EKG abnormalities, this was successfully treated with a drug-eluting stent and the patient's chest pain resolved at the conclusion of the case, and he was admitted for further evaluation. Upon admission to the hospital, he was taken to the cardiac curb and gutter laborer emergently as above. He did tolerate the procedure well and was transferred to the recovery room. Following the day of admission, he did appear to be doing well and did undergo the above echocardiogram. He had tolerated this well and was taken back to his room. His temperature had been up to 99.4 and his vital signs were stable. He was continued on supportive care. On 11/21/2016 he had no complaints of chest pain and did appear to be doing well. He was evaluated by Physical Therapy. His heart rate on telemetry was 111. His lungs did reveal decreased breath sounds in the bases. His Coreg was increased to 25 mg twice daily. He was continued on supportive care. On 11/22/2016 he had no complaints of chest pain or shortness of breath, and had no palpitations noted. He did remain in stable condition throughout that day and was then discharged with the above instructions. Information collected by: Agus MoraIHansT. I submit the above information as my discharge summary. DESTINEE/MODL Kip Irene MD / [id number] CC: MD Miya Sher MD William Warren, M.D.
[~2016-11-19 13:15] MED LIST changes: +8 HOUR650 MG PO; +ACULAR OPH; +APRES50 PO; +C1 PO; +C5 PO; +COREG6 PO; +FISH OIL1200 MG PO; +IMDUR120 PO; +IMDUR30 PO; +KDUR20 PO; +OCUFLOX OPH; +PREDFORTE OPH; +PRILOSEC OTC20 MG PO; +REFRESH OPH SO0.3 ML OPH; +SALONPAS-HOT TOP; +VERELAN120 MG PO; +VERELAN240 MG PO
[2016-11-19 13:37] LABS: BASOPHILS 0.1 %; BASOPHILS ABSOLUTE 0.01 10/3/uL (0.0-0.16); EOSINOPHILS 1.4 %; EOSINOPHILS ABSOLUTE 0.13 10/3/uL (0.0-0.53); HEMATOCRIT 33.3 % (40.0-51.0); HEMOGLOBIN 11.2 g/dL (13.6-17.8); IMMATURE GRANULOCYTES 0.4 %; IMMATURE GRANULOCYTES ABSOLUTE 0.04 10/3/uL (0.0-0.11); LYMPHOCYTES ABSOLUTE 0.81 10/3/uL (0.67-4.30); MANUAL DIFF NO %; MEAN CORPUS HGB CONC 33.6 g/dL (32.0-36.0); MEAN CORPUSCULAR HEMOGLOB 30.4 pg (26.0-34.0); MEAN CORPUSCULAR VOLUME 90.5 fL (80-100); MEAN PLATELET VOLUME 9.6 fL (9.2-13.0); MONOCYTES ABSOLUTE 1.17 10/3/uL (0.21-1.20); NEUTROPHILS 76.1 %; NEUTROPHILS ABSOLUTE 6.84 10/3/uL (2.02-8.40); PLATELET COUNT 301 10/3/uL (150-400); RBC DISTRIBUTION WIDTH 13.5 % (12.0-16.0); RED CELL COUNT 3.68 10/6/uL (4.7-6.1)
[2016-11-19 13:44] LABS: INTERNATIONAL NORMAL RATI 2.8 UNITS (-)
[2016-11-19 13:49] LABS: CREATININE 1.2 MG/DL (0.70-1.30)
[2016-11-19 13:54] LABS: PROTIME (NOT ORD) 29.6 SEC (12.0-14.5)
[2016-11-19 13:55] LABS: PARTIAL THROMBO TIME > 150.0 SEC (22.5-37.2)
[2016-11-19 13:56] LABS: BUN (BLOOD UREA NITROGEN) 18 MG/DL (6-23); CALCIUM, SERUM 8.8 MG/DL (8.5-10.4); CHLORIDE, SERUM 103 MMOL/L (96-112); CO2 (CARBON DIOXIDE) 24 MMOL/L (24-34); CREATININE 1.28 MG/DL (0.70-1.30); GFR AFRICAN AMERICAN 64 ML/MIN (>=60); GFR NON AFRICAN AMERICAN 55 ML/MIN (>=60); GLUCOSE, SERUM 106 MG/DL (60-99); POTASSIUM, SERUM 4.4 MMOL/L (3.5-5.3); SODIUM, SERUM 136 MMOL/L (135-148)
[2016-11-19 13:58] LABS: CHEST PAIN PROFILE TAT 0 Hrs 25 Mins; TROPONIN I 0.08 NG/ML (<0.05)
[2016-11-19 16:36] LABS: CK-MB 106.8 NG/ML
[2016-11-19 16:37] LABS: CKMB INDEX (NOT ORD) 5.8
[2016-11-19] MEDS ORDERED: APRES25 PO (17:25)
[2016-11-19 23:19] LABS: CKMB INDEX (NOT ORD) 7.5
[2016-11-20 05:37] LABS: BASOPHILS 0.1 %; BASOPHILS ABSOLUTE 0.01 10/3/uL (0.0-0.16); EOSINOPHILS 0.8 %; EOSINOPHILS ABSOLUTE 0.07 10/3/uL (0.0-0.53); HEMATOCRIT 32.8 % (40.0-51.0); HEMOGLOBIN 11.7 g/dL (13.6-17.8); IMMATURE GRANULOCYTES 0.5 %; IMMATURE GRANULOCYTES ABSOLUTE 0.04 10/3/uL (0.0-0.11); LYMPHOCYTES 7.1 %; LYMPHOCYTES ABSOLUTE 0.59 10/3/uL (0.67-4.30); MEAN CORPUSCULAR HEMOGLOB 33.2 pg (26.0-34.0); MEAN CORPUSCULAR VOLUME 93.2 fL (80-100); MEAN PLATELET VOLUME 10.2 fL (9.2-13.0); MONOCYTES ABSOLUTE 1.25 10/3/uL (0.21-1.20); NEUTROPHILS 76.5 %; NEUTROPHILS ABSOLUTE 6.36 10/3/uL (2.02-8.40); PLATELET COUNT 244 10/3/uL (150-400); RBC DISTRIBUTION WIDTH 13.9 % (12.0-16.0); RED CELL COUNT 3.52 10/6/uL (4.7-6.1); WHITE BLOOD CELLS 8.3 10/3/uL (4.5-10.5)
[2016-11-20 05:41] LABS: MANUAL DIFF NO %; MEAN CORPUS HGB CONC 35.7 g/dL (32.0-36.0)
[2016-11-20 06:01] LABS: BUN (BLOOD UREA NITROGEN) 17 MG/DL (6-23); CALCIUM, SERUM 8.6 MG/DL (8.5-10.4); CHLORIDE, SERUM 103 MMOL/L (96-112); CHOLESTEROL 90 MG/DL (< 200); CK-MB 102.1 NG/ML; CO2 (CARBON DIOXIDE) 22 MMOL/L (24-34); CPK 1545 U/L (0-200); CREATININE 1.19 MG/DL (0.70-1.30); GFR AFRICAN AMERICAN 70 ML/MIN (>=60); GFR NON AFRICAN AMERICAN 60 ML/MIN (>=60); GLUCOSE, SERUM 101 MG/DL (60-99); POTASSIUM, SERUM 4.8 MMOL/L (3.5-5.3); SODIUM, SERUM 133 MMOL/L (135-148); TRIGLYCERIDE 77 MG/DL (< 150)
[2016-11-20 06:02] LABS: CHOL/HDL RATIO(NOT ORDER) 4.3 (0-5); CKMB INDEX (NOT ORD) 6.6; HDL CHOLESTEROL 21 MG/DL (> 39); LDL CHOLESTEROL 54 MG/DL (< 130); NON-HDL CHOLESTEROL 69 MG/DL (< 160)
[2016-11-20 15:05] LABS: CKMB INDEX (NOT ORD) 4.4
[2016-11-21 05:45] LABS: BASOPHILS 0.1 %; BASOPHILS ABSOLUTE 0.01 10/3/uL (0.0-0.16); EOSINOPHILS 1.7 %; EOSINOPHILS ABSOLUTE 0.13 10/3/uL (0.0-0.53); HEMATOCRIT 30.1 % (40.0-51.0); HEMOGLOBIN 10.1 g/dL (13.6-17.8); IMMATURE GRANULOCYTES 0.5 %; IMMATURE GRANULOCYTES ABSOLUTE 0.04 10/3/uL (0.0-0.11); LYMPHOCYTES 9.9 %; LYMPHOCYTES ABSOLUTE 0.74 10/3/uL (0.67-4.30); MEAN CORPUSCULAR HEMOGLOB 30.5 pg (26.0-34.0); MEAN CORPUSCULAR VOLUME 90.9 fL (80-100); MEAN PLATELET VOLUME 9.3 fL (9.2-13.0); MONOCYTES 15.8 %; MONOCYTES ABSOLUTE 1.18 10/3/uL (0.21-1.20); NEUTROPHILS ABSOLUTE 5.39 10/3/uL (2.02-8.40); PLATELET COUNT 292 10/3/uL (150-400); RBC DISTRIBUTION WIDTH 13.4 % (12.0-16.0); RED CELL COUNT 3.31 10/6/uL (4.7-6.1); WHITE BLOOD CELLS 7.5 10/3/uL (4.5-10.5)
[2016-11-21 05:46] LABS: MANUAL DIFF NO %; MEAN CORPUS HGB CONC 33.6 g/dL (32.0-36.0)
[2016-11-21 05:50] LABS: INTERNATIONAL NORMAL RATI 3.6 UNITS (-)
[2016-11-21 05:54] LABS: PROTIME (NOT ORD) 35.9 SEC (12.0-14.5)
[2016-11-21 05:58] LABS: BUN (BLOOD UREA NITROGEN) 16 MG/DL (6-23); CALCIUM, SERUM 8.3 MG/DL (8.5-10.4); CHLORIDE, SERUM 98 MMOL/L (96-112); GFR AFRICAN AMERICAN 63 ML/MIN (>=60); GFR NON AFRICAN AMERICAN 54 ML/MIN (>=60); GLUCOSE, SERUM 95 MG/DL (60-99); POTASSIUM, SERUM 3.9 MMOL/L (3.5-5.3); SODIUM, SERUM 129 MMOL/L (135-148)
[2016-11-21 06:01] LABS: CO2 (CARBON DIOXIDE) 28 MMOL/L (24-34)
[2016-11-22 05:06] LABS: BASOPHILS 0.1 %; BASOPHILS ABSOLUTE 0.01 10/3/uL (0.0-0.16); EOSINOPHILS 2.1 %; EOSINOPHILS ABSOLUTE 0.14 10/3/uL (0.0-0.53); HEMATOCRIT 30.4 % (40.0-51.0); HEMOGLOBIN 10.1 g/dL (13.6-17.8); IMMATURE GRANULOCYTES 0.4 %; IMMATURE GRANULOCYTES ABSOLUTE 0.03 10/3/uL (0.0-0.11); LYMPHOCYTES 9.6 %; LYMPHOCYTES ABSOLUTE 0.64 10/3/uL (0.67-4.30); MEAN CORPUS HGB CONC 33.2 g/dL (32.0-36.0); MEAN CORPUSCULAR HEMOGLOB 30.6 pg (26.0-34.0); MEAN CORPUSCULAR VOLUME 92.1 fL (80-100); MEAN PLATELET VOLUME 9.3 fL (9.2-13.0); MONOCYTES 15.4 %; MONOCYTES ABSOLUTE 1.03 10/3/uL (0.21-1.20); NEUTROPHILS 72.4 %; NEUTROPHILS ABSOLUTE 4.85 10/3/uL (2.02-8.40); PLATELET COUNT 297 10/3/uL (150-400); RBC DISTRIBUTION WIDTH 13.3 % (12.0-16.0); WHITE BLOOD CELLS 6.7 10/3/uL (4.5-10.5)
[2016-11-22 05:07] LABS: INTERNATIONAL NORMAL RATI 3.1 UNITS (-); MANUAL DIFF NO %
[2016-11-22 05:23] LABS: BUN (BLOOD UREA NITROGEN) 21 MG/DL (6-23); CALCIUM, SERUM 8.6 MG/DL (8.5-10.4); CHLORIDE, SERUM 103 MMOL/L (96-112); CO2 (CARBON DIOXIDE) 25 MMOL/L (24-34); CREATININE 1.39 MG/DL (0.70-1.30); GFR AFRICAN AMERICAN 58 ML/MIN (>=60); GFR NON AFRICAN AMERICAN 50 ML/MIN (>=60); GLUCOSE, SERUM 95 MG/DL (60-99); POTASSIUM, SERUM 4.1 MMOL/L (3.5-5.3); SODIUM, SERUM 128 MMOL/L (135-148)
[2016-11-22] MEDS ORDERED: ASAB PO (14:07)
[2016-11-22] MEDS ORDERED: LIPITOR40 PO (14:08)
[2016-11-22] MEDS ORDERED: COREG12 PO (14:09)
[2016-11-22] MEDS ORDERED: PLAVIX PO (14:09)
[2016-11-22] MEDS ORDERED: PRIN2.5 PO (14:12)
[2016-11-22] MEDS ORDERED: L20 PO (14:12)
[2016-11-22] MEDS ORDERED: COUMADIN4 MG PO (14:14)
[2016-11-22] MEDS ORDERED: NTG150 SL (14:16)
[2016-11-22] MEDS ORDERED: CAL12OSR PO (14:59)
[2016-11-22] MEDS ORDERED: VERELAN120 MG PO (15:05)
[2017-03-14] MEDS ORDERED: COZ25 PO (15:35)
== END 2016-11-22 16:09 | disposition home or self-care (01) | DRG 247 ==
LOC: SSU2 13:15 → CCU 15:23 → 5NO 11-20 16:29
PROVIDERS: Internal Medicine Cardiovascular Disease; Nurse Practitioner Family
PROC: 4A023N7 Measurement of Cardiac Sampling and Pressure, Left Heart, Percutaneous Approach (ICD-10-PCS; principal; 2016-11-19)
PROC: 027034Z Dilation of Coronary Artery, One Artery with Drug-eluting Intraluminal Device, Percutaneous Approach (ICD-10-PCS; 2016-11-19)
PROC: B2111ZZ Fluoroscopy of Multiple Coronary Arteries using Low Osmolar Contrast (ICD-10-PCS; 2016-11-19)
PROC: B2151ZZ Fluoroscopy of Left Heart using Low Osmolar Contrast (ICD-10-PCS; 2016-11-19)
DX: I21.09 ST elevation (STEMI) myocardial infarction involving other coronary artery of anterior wall (principal); I42.9 Cardiomyopathy, unspecified; I48.2 Chronic atrial fibrillation; I25.10 Atherosclerotic heart disease of native coronary artery without angina pectoris; R00.0 Tachycardia, unspecified; N18.9 Chronic kidney disease, unspecified; I12.9 Hypertensive chronic kidney disease with stage 1 through stage 4 chronic kidney disease, or unspecified chronic kidney disease; Z85.038 Personal history of other malignant neoplasm of large intestine
CPT/HCPCS: 71010; 80048; 80061; 82550; 82553; 82565; 83735; 84132; 84295; 84484; 85025; 85610; 85730; 87641; 93005; 93306; 93454; 97161-GP; 97165-GO; 99152; 99153; A9270-GY; C1725; C1760; C1769; C1874; C1887; C1894; C9606; G8978-CH-GP; G8979-CH-GP; G8980-CH-GP; G8987-CH-GO; G8988-CH-GO; G8989-CH-GO; J0583; J2250; J2405; J3010; Q9967

== ENCOUNTER 2016-12-03 19:37 | Inpatient (IN) | payer MEDICARE, OTHER ==
--- NOTE | ~2016-12-03 | DS ---
Discharge Summary [facility] [address] [place]. [address] NAME: ROLANDO FONTAINE : 41 STATUS : DIS IN PAT#: [id number] AGE: 71 ADM/REG DATE : 12/03/16 MR#: [id number] REPORT SERV DATE: 12/07/16 DICTATED BY: KIMBERLY CHAN DATE: 12/06/16 REPORT STATUS : Draft TRANSCRIBED BY: MODL DATE: 12/06/16 ADMISSION DATE: 12/03/2016 DISCHARGE DATE: 12/06/2016 Mr. Fontaine is a 71-year-old very pleasant gentleman with a history of AFib, hypertension, CHF with reduced EF, CKD stage 3, who presented to the hospital with a complaint of shortness of breath and dyspnea on exertion. For further details, please refer to H and P dictated by Dr. Roman on 12/03/2016. HOSPITAL COURSE: Upon presentation to the hospital, the patient was diagnosed with acute decompensated heart failure and was subsequently started on IV Lasix with good response. Cardiology was also consulted for assistance status post initiation of IV diuretics. The patient significantly improved with resolution of symptoms and was transitioned to p.o. Lasix, which he has tolerated well. The patient has been seen by Cardiology. He has done well on medication optimization. He has remained hemodynamically stable and given resolution of his presenting complaints, the patient will be discharged home today. Also while in the hospital, the patient was managed for AFib. He is currently on anticoagulation with warfarin. His INR has remained therapeutic during this hospitalization. His rate is currently controlled. For his hypertension, the patient's home medications were continued and his blood pressure has been controlled during this hospitalization. The patient has CKD stage 3, which has remained stable. For his hyperlipidemia, he was continued on home dose statin therapy. DISCHARGE DIAGNOSES: 1. Heart failure with reduced ejection fraction. 2. Hyponatremia. 3. Acute kidney injury. 4. Chronic kidney disease stage 3. 5. Hypertension. 6. Atrial fibrillation. DISCHARGE EXAMINATION: VITAL SIGNS: Blood pressure 143/95 with a pulse of 90, respiration of 18, O2 saturation 95% on room air. GENERAL: Very pleasant gentleman, resting in chair, in no acute distress. HEENT: Normocephalic and atraumatic. Extraocular motors intact. Moist oral mucosa. NECK: Trachea midline and symmetric. No JVD noted. No thyromegaly present. CHEST: Nontender to palpation. Patient wearing a LifeVest. CARDIOVASCULAR: Irregularly irregular rate and rhythm. I did not appreciate any murmurs. LUNGS: Clear to auscultation bilaterally. ABDOMEN: Soft, nontender, nondistended. Positive bowel sounds in all four quadrants. EXTREMITIES: No cyanosis, no clubbing, no edema. NEUROLOGIC: Alert and oriented x3. No focal deficits appreciated. COLLAR STITCHER: Dr. Baron of Cardiology. DISCHARGE MEDICATIONS: Aspirin 81 mg p.o. daily, atorvastatin 40 mg p.o. daily, carvedilol Discharge Summary [address] [address] NAME: ROLANDO FONTAINE : 41 STATUS : DIS IN PAT#: [id number] AGE: 71 ADM/REG DATE : 12/03/16 MR#: [id number] REPORT SERV DATE: 12/07/16 DICTATED BY: KIMBERLY CHAN DATE: 12/06/16 REPORT STATUS : Draft TRANSCRIBED BY: FATEMEH DATE: 12/06/16 12.5 mg p.o. twice a day, Plavix 75 mg p.o. daily, Lasix 40 mg p.o. twice a day, lisinopril 2.5 mg p.o. daily, fish oil 1200 mg capsule p.o. twice a day, K-Dur 20 mEq p.o. every evening, prednisolone acetate 1% ophthalmic solution one drop ophthalmic every morning on right eye only, Aldactone 12.5 mg p.o. twice a day, verapamil 120 mg p.o. twice a day, warfarin 3.5 mg p.o. every morning. DISPOSITION: The patient will be discharged home with home health. ACTIVITY: As tolerated. DIET: Low salt cardiac diet. Greater than 30 minutes was spent providing counseling, dictation of note, medication reconciliation. DICTATED BY: MD ARNOLD Monahan/FATEMEH Kimberly Chan MD / [id number] CC: MD Miya Monahan MD
--- NOTE | ~2016-12-03 | HP ---
History And Physical [place] [address] [facility] [place]. [address] NAME: ROLANDO FONTAINE : 41 STATUS : ADM IN [facility]#: [id number] AGE: 71 ADM/REG DATE : 12/03/16 MR#: [id number] REPORT SERV DATE: 12/04/16 DICTATED BY: ROLANDO ONEILL DATE: 12/03/16 REPORT STATUS : Draft TRANSCRIBED BY: MODL DATE: 12/03/16 DATE OF ADMISSION: 12/03/2016 POINT OF ENTRY: Transfer from [facility]. PRIMARY TRADE SHOW SPECIALIST: Dr. Russ Baron. CHIEF COMPLAINT: Shortness of breath, dyspnea on exertion. HISTORY OF PRESENT ILLNESS: Mr. Fontaine is a 71-year-old gentleman with a history of recent anterolateral ST elevation myocardial infarction status post drug-eluting stent, PCI to the second diagonal on 11/19/2016 as well as a history of chronic systolic congestive heart failure, most recent ejection fraction of 30-35%, who presented to [facility] today with reports of a two-week history of progressively worsening shortness of breath, dyspnea on exertion, orthopnea, and PND. The patient was recently admitted to the Hospitalist Service in late October for chest pain and jaw pain. At that time, he underwent a negative ischemic evaluation including stress test and coronary arteriogram, however, it was noted that he had a new diagnosis of chronic systolic congestive heart failure with ejection fraction of approximately 35%. The patient was subsequently discharged to home only to return a few days later on 11/19/2016 with reports of chest pain and an anterolateral ST-elevation myocardial infarction. The patient underwent re-emergent cardiac catheterization and a drug-eluting stent was placed to the second diagonal region. Repeat echocardiogram done on 11/20/2016 showed ejection fraction of approximately 30% with preserved RV function. The patient was discharged on or about 11/21/2016 or 11/22/[address] in [address]. The patient states that since discharge to home he still continues to have troubles with shortness of breath, dyspnea on exertion, orthopnea, and PND. He states that over the past few days it has worsened to the point where he cannot even sleep sitting upright and only slept about two hours last night prompting his call to Dr. Baron's office earlier today who then recommended he present to the emergency department. He reports compliance with Lasix. States he avoids salt. He does not actively track his fluid intake, but it appears to be less than 1.5 L. He does not weigh himself on a daily basis. He denies any recent fevers, night sweats, chills, chest pain, palpitations, cough, sputum production, abdominal pain, vomiting, diarrhea, melena, hematochezia, or hemoptysis. He states that he does not think his lower extremity edema has worsened over the past few weeks. He states occasionally he will not have much of an appetite, and he gets somewhat nauseous. REVIEW OF SYSTEMS: Comprehensive review of systems otherwise negative unless listed in history of present illness. Initial evaluation at [facility] Emergency Department notable for a chest x-ray History And Physical [address] [address] NAME: ROLANDO FONTAINE Beatrice : 41 STATUS : ADM IN [facility]#: [id number] AGE: 71 ADM/REG DATE : 12/03/16 MR#: [id number] REPORT SERV DATE: 12/04/16 DICTATED BY: ROLANDO ONEILL DATE: 12/03/16 REPORT STATUS : Draft TRANSCRIBED BY: MODBjorn DATE: 12/03/16 concerning for volume overload with pulmonary edema. ProBNP was massively elevated at 15,860. Troponin also elevated at 0.63. EKG was nonischemic. Remainder of his labs were concerning for a sodium of 122. The patient was given 20 mEq of potassium and 60 mg of IV Lasix and transferred to [facility] PREVIOUS MEDICAL HISTORY: 1. Chronic systolic congestive heart failure with ejection fraction of 30% to 35%. 2. Coronary artery disease with recent anterolateral ST-elevation myocardial function status post PCI. 3. Atrial fibrillation, on anticoagulation. 4. Chronic kidney disease, stage 3. 5. History of solitary kidney. 6. History of colon cancer, status post partial colectomy. 7. History of kidney cancer, status post left-sided nephrectomy. 8. Hypertension. 9. Hyperlipidemia. 10.BPH. 11.Gastroesophageal reflux disease. SURGICAL HISTORY: 1. Left adrenalectomy. 2. Left nephrectomy. 3. Partial colectomy. 4. TURP. 5. Tonsillectomy. 6. Cardiac PCI. ALLERGIES: OXYBUTYNIN. HOME MEDICATIONS: 1. Tylenol 1300 mg daily p.r.n. 2. Artificial Tears four times daily p.r.n. 3. Aspirin 81 mg daily. 4. Lipitor 40 mg daily. 5. Carvedilol 12.5 mg b.i.d. 6. Plavix 75 mg daily. 7. Lasix 40 mg daily. 8. Ketorolac three times daily eye drops. 9. Lisinopril 2.5 mg daily. 10.Nitroglycerin 0.4 mg sublingual p.r.n. 11.[place]-3 fatty acid. 12.Fish oil 1200 mg b.i.d. 13.Omeprazole 20 mg daily. 14.Potassium chloride 10 mEq daily. 15.Pred Forte eyedrops daily, right eye only. 16.Verapamil 120 mg b.i.d. 17.Coumadin 3.5 mg daily. History And Physical [address] [address] NAME: ROLANDO FONTAINE : 41 STATUS : ADM IN [facility]#: [id number] AGE: 71 ADM/REG DATE : 12/03/16 MR#: [id number] REPORT SERV DATE: 12/04/16 DICTATED BY: ROLANDO ONEILL DATE: 12/03/16 REPORT STATUS : Draft TRANSCRIBED BY: FATEMEH DATE: 12/03/16 SOCIAL HISTORY: Denies any tobacco, alcohol, or illicits. FAMILY MEDICAL HISTORY: Mother of old age in her 80s. Father with history of stroke. LABS AND IMAGING: All obtained from transfer records from [facility]. 1. White count 8.4, hemoglobin 10.5, hematocrit is 32.8, and platelets 415. INR 3.7. 2. Sodium is 122, potassium 3.4, chloride 89, carbon dioxide 27, BUN 16, creatinine 1.4, glucose is 111, calcium is 8.5, protein 6.8, albumin 2.7, bilirubin 0.5, ALT is 45, AST 26, alkaline phosphatase is 97. 3. ProBNP 15,859, upper limit of normal being 450, troponin 0.63. 4. EKG per my review shows atrial fibrillation with no evidence of any acute ischemia or infarction. Does have some fairly deep T-wave inversions V4 through V6. 5. Repeat EKG upon arrival here per my review shows atrial fibrillation with occasional PVC with no evidence of any acute ischemia or infarction. Does have some mild T-wave inversions in lead V6 now. 6. Chest x-ray per Radiology report from [facility] shows pulmonary edema as well as cardiomegaly and a right-sided pleural effusion. 7. Repeat chest x-ray upon arrival to [facility], per my review, LifeVest is in place, cardiomegaly, small right-sided pleural effusion as well as evidence of some pulmonary venous congestion, intravascular volume overload, worse compared to prior chest x-ray from 11/21/2016. PHYSICAL EXAMINATION: VITAL SIGNS: Temperature is 97.1 degrees Fahrenheit, pulse is 84, respirations 16, saturating 96% on 3 L by nasal cannula, and blood pressure 151/102. GENERAL: The patient is awake, alert, in no acute distress, resting comfortably in bed. He is a chronically ill-appearing, elderly male. HEENT: Atraumatic and normocephalic. Moist mucous membranes. Pupils equal, round, reactive to light and accommodation. Extraocular eye movements intact. No scleral icterus. NECK: Positive jugular venous distention. No carotid bruits. CARDIAC: Irregularly irregular rate and rhythm. 2/6 systolic murmur heard best over the left lower sternal border. LUNGS: Difficult examination given presence of LifeVest but does have some decreased breath sounds in bilateral bases, right greater than left as well as some inspiratory bibasilar rales and crackles but in no acute distress. ABDOMEN: Soft, nontender, nondistended. Good bowel sounds. No rebound, guarding, or rigidity. EXTREMITIES: Warm, perfused with 1+ lower extremity edema. SKIN: Warm and dry. PSYCH: Affect appropriate. NEURO: Alert and oriented x3. Cranial nerves 2 through 12 grossly intact. Speech is normal. Gait not assessed. ASSESSMENT: Mr. Fontaine is a 71-year-old gentleman with history of recent anterolateral History And Physical [address] [address] NAME: ROLANDO FONTAINE : 41 STATUS : ADM IN [facility]#: [id number] AGE: 71 ADM/REG DATE : 12/03/16 MR#: [id number] REPORT SERV DATE: 12/04/16 DICTATED BY: ROLANDO ONEILL DATE: 12/03/16 REPORT STATUS : Draft TRANSCRIBED BY: MODL DATE: 12/03/16 STEMI and chronic systolic congestive heart failure who presents with worsening dyspnea on exertion, shortness of breath, orthopnea, PND, and found to have evidence of acute on chronic systolic congestive heart failure. PROBLEM LIST: 1. Acute on chronic systolic congestive heart failure. 2. Elevated troponin value. 3. Hyponatremia. 4. Supratherapeutic INR. 5. Chronic kidney disease, stage 3. 6. Atrial fibrillation, on anticoagulation. 7. Hypokalemia. 8. Hypoxia. PLAN: 1. Acute on chronic systolic congestive heart failure. We will admit the patient to the Hospitalist Service. He has received 60 of IV Lasix in outside ER with good diuretic response. We will continue IV Lasix q.8 hours for the first [address] Baron as well as the Cardiology Heart Failure Team for assistance. Place the patient on strict sodium and fluid restrictions as well as daily weights. 2. Elevated troponin value, likely demand ischemia from patient's acute on chronic CHF as well as contribution from his CKD stage 3 versus possible continued metabolism of his elevated troponin value as last noted troponin value in our system was 80.5, less than two weeks ago. He currently denies any chest pain. EKG is nonischemic. We will continue to trend out cardiac enzymes. Continue the patient's aspirin, Plavix, beta- ivana, and lisinopril as well as statin. 3. Hyponatremia. I suspect due to volume overload. We will check the appropriate labs including urinalysis, urine lytes, serum osmoles, and cortisol level. I suspect this will improve with diuresis. We will follow up repeat BMP in the morning. 4. Supratherapeutic INR. Holding the patient's Coumadin. Pharmacy to assist with dosing. 5. Chronic kidney disease, stage 3, appears to be within recent baseline. We will closely monitor given diuresis. 6. Atrial fibrillation, on anticoagulation. Continue the patient's home beta-ivana but holding his Coumadin. Continue telemetry monitoring. Currently, well rate controlled. 7. Hypoxemia. Continue to wean as tolerated. We will provide pulmonary toilet. 8. DVT prophylaxis. The patient is on Coumadin with an elevated INR. CODE STATUS: The patient wished to be full code. JCB/FATEMEH Rolando Oneill MD / [id number] History And Physical [address] [address] NAME: SHAMIKAROLANDO Barron : 41 STATUS : ADM IN PAT#: [id number] AGE: 71 ADM/REG DATE : 12/03/16 MR#: [id number] REPORT SERV DATE: 12/04/16 DICTATED BY: ROLANDO ONEILL DATE: 12/03/16 REPORT STATUS : Draft TRANSCRIBED BY: FATEMEH DATE: 12/03/16 CC: Monroe Cortez MD William Warren, M.D.
--- NOTE | ~2016-12-03 | CN ---
Consultation Report [facility] [address] [place]. [address] NAME: ROLANDO WICK : 41 STATUS : ADM IN PAT#: [id number] AGE: 71 ADM/REG DATE : 12/03/16 MR#: [id number] REPORT SERV DATE: 12/04/16 DICTATED BY: JESSENIA GLASS DATE: 12/04/16 REPORT STATUS : Draft TRANSCRIBED BY: MODL DATE: 12/04/16 CARDIOLOGY CONSULTATION DATE OF CONSULTATION: INDICATION: Ischemic cardiomyopathy with progressive heart failure. HISTORY: The patient is a 71-year-old white male who was hospitalized recently with an anterolateral myocardial infarction due to an occluded second diagonal branch. He underwent PCI on 11/19/2016 and was subsequently discharged to home. He states upon arrival at home, he had exertional dyspnea. The symptoms progressed to include PND and some mild lower extremity edema. He went to the emergency room at [facility], where he was found to be in heart failure and transferred subsequently to [facility]. He has chronic underlying atrial fibrillation and history of nonsustained ventricular tachycardia in the past with a normal ejection fraction. He had been treated with beta blockers, (06/2014). Presently, he feels significantly improved. CURRENT HOME MEDICATIONS: Acetaminophen p.r.n., Artificial Tears one drop four times a day, aspirin 81 x30 days, atorvastatin 40 at bedtime, carvedilol 12.5 b.i.d., clopidogrel 75 per day, furosemide 40 per day, ketorolac ophthalmologic solution 0.5% one drop three times a day right eye, lisinopril 2.5 q.a.m., nitroglycerin 0.4 p.r.n., omega-3 fatty acids 1200 b.i.d., omeprazole 20 p.r.n., potassium 20 at bedtime, prednisolone acetate 1% q.a.m., verapamil 120 b.i.d., and warfarin 3.5 at bedtime. ALLERGIES OR INTOLERANCES: Oxybutynin (blisters in the throat). SOCIAL HISTORY: Negative for tobacco or alcohol use. FAMILY HISTORY: He is with two children and two grandchildren. He enjoys "pedaling around the house." PAST MEDICAL HISTORY/REVIEW OF SYSTEMS: He has a previous partial colectomy, left nephrectomy with adrenalectomy. He has had TURP and hand surgery x2. He has a history of chronic kidney disease stage III. Renal cell carcinoma necessitating the nephrectomy, hyperlipidemia, hypertension, and chronic atrial fibrillation. PHYSICAL EXAMINATION: GENERAL: Pleasant 71-year-old white male, blood pressure 117/71, pulse is 82 and irregular, respirations 18. SKIN: No xanthelasmas. HEENT: Normocephalic. JVD is not elevated. CHEST: There is dullness to the right base. There are no wheezes. CARDIAC: PMI is slightly displaced. S1 variable, S2 singular. There is a 2/6 systolic Consultation Report [place] [id number] [facility] [place]. [address] NAME: ROLANDO WICK : 41 STATUS : ADM IN [facility]#: [id number] AGE: 71 ADM/REG DATE : 12/03/16 MR#: [id number] REPORT SERV DATE: 12/04/16 DICTATED BY: JESSENIA GLASS DATE: 12/04/16 REPORT STATUS : Draft TRANSCRIBED BY: MODL DATE: 12/04/16 ejection murmur transmitted to the base. ABDOMEN: Without tenderness. EXTREMITIES: With +1 ankle edema. NEUROLOGIC: No focal deficits. MUSCULOSKELETAL: No kyphosis. LABORATORY DATA: BUN 18, creatinine 1.3. White count 7.4, hemoglobin 10.4, platelets 333,000. BNP 1760. IMPRESSION: Ischemic cardiomyopathy with symptoms of congestive heart failure in a 71-year- old gentleman with stage 3 kidney disease, chronic atrial fibrillation, hypertension, hyperlipidemia. He will be admitted for further therapy. Ideally, if we could achieve rate control with beta blockade instead of verapamil, this would be to the patient's benefit, additionally would derive some benefit from starting on Aldactone if his pressures tolerate. Further recommendations forthcoming. ZACK/FATEMEH Jessenia Glass M.D. / [id number] CC: MD Miya Monahan MD [facility]
[~2016-12-03 19:37] MED LIST changes: +APRES25 PO; +CAL12OSR PO; +COREG12 PO; +COUMADIN4 MG PO; +L20 PO; +LIPITOR40 PO; +NTG150 SL; +PLAVIX PO; +PRIN2.5 PO
[2016-12-03] MEDS ORDERED: PLAVIX PO (21:35)
[2016-12-03] MEDS ORDERED: COREG12 PO (21:35)
[2016-12-03] MEDS ORDERED: VERELAN120 MG PO (21:36)
[2016-12-03] MEDS ORDERED: ZESTRIL2.5 MG PO (21:36)
[2016-12-03] MEDS ORDERED: FISH OIL1200 MG PO (21:36)
[2016-12-03] MEDS ORDERED: L40 PO (21:36)
[2016-12-03] MEDS ORDERED: KDUR20 PO (21:37)
[2016-12-03] MEDS ORDERED: LIPITOR40 PO (21:37)
[2016-12-03] MEDS ORDERED: C1 PO (21:37)
[2016-12-03] MEDS ORDERED: ASAB PO (21:37)
[2016-12-03] MEDS ORDERED: 8 HOUR650 MG PO (21:38)
[2016-12-03] MEDS ORDERED: NITROSTAT0.4 MG SL (21:38)
[2016-12-03] MEDS ORDERED: ACULAR OPH (21:42)
[2016-12-03] MEDS ORDERED: PREDFORTE OPH (21:42)
[2016-12-03] MEDS ORDERED: REFRESH OPH SO0.3 ML OPH (21:43)
[2016-12-03] MEDS ORDERED: PRILOSEC OTC20 MG PO (21:49)
[2016-12-03 22:54] LABS: BUN (BLOOD UREA NITROGEN) 18 MG/DL (6-23); CALCIUM, SERUM 8.6 MG/DL (8.5-10.4); CHLORIDE, SERUM 103 MMOL/L (96-112); CK-MB < 0.5 NG/ML; CO2 (CARBON DIOXIDE) 29 MMOL/L (24-34); CPK 48 U/L (0-200); GFR AFRICAN AMERICAN 57 ML/MIN (>=60); GFR NON AFRICAN AMERICAN 49 ML/MIN (>=60); GLUCOSE, SERUM 119 MG/DL (60-99); POTASSIUM, SERUM 3.9 MMOL/L (3.5-5.3); SODIUM, SERUM 138 MMOL/L (135-148)
[2016-12-03 22:55] LABS: TROPONIN I 0.55 NG/ML (<0.05)
[2016-12-04 03:22] LABS: BASOPHILS 0.1 %; BASOPHILS ABSOLUTE 0.01 10/3/uL (0.0-0.16); EOSINOPHILS 2.6 %; EOSINOPHILS ABSOLUTE 0.19 10/3/uL (0.0-0.53); HEMATOCRIT 31.9 % (40.0-51.0); HEMOGLOBIN 10.4 g/dL (13.6-17.8); IMMATURE GRANULOCYTES 0.4 %; IMMATURE GRANULOCYTES ABSOLUTE 0.03 10/3/uL (0.0-0.11); LYMPHOCYTES 10.6 %; LYMPHOCYTES ABSOLUTE 0.78 10/3/uL (0.67-4.30); MEAN CORPUS HGB CONC 32.6 g/dL (32.0-36.0); MEAN CORPUSCULAR HEMOGLOB 29.7 pg (26.0-34.0); MEAN CORPUSCULAR VOLUME 91.1 fL (80-100); MEAN PLATELET VOLUME 8.7 fL (9.2-13.0); MONOCYTES ABSOLUTE 1.03 10/3/uL (0.21-1.20); NEUTROPHILS 72.3 %; NEUTROPHILS ABSOLUTE 5.32 10/3/uL (2.02-8.40); PLATELET COUNT 333 10/3/uL (150-400); RBC DISTRIBUTION WIDTH 13.4 % (12.0-16.0); WHITE BLOOD CELLS 7.4 10/3/uL (4.5-10.5)
[2016-12-04 03:24] LABS: MANUAL DIFF NO %
[2016-12-04 03:30] LABS: INTERNATIONAL NORMAL RATI 2.8 UNITS (-); PROTIME (NOT ORD) 29.4 SEC (12.0-14.5)
[2016-12-04 03:45] LABS: BUN (BLOOD UREA NITROGEN) 18 MG/DL (6-23); CALCIUM, SERUM 8.4 MG/DL (8.5-10.4); CHLORIDE, SERUM 101 MMOL/L (96-112); CO2 (CARBON DIOXIDE) 29 MMOL/L (24-34); CPK 46 U/L (0-200); CREATININE 1.38 MG/DL (0.70-1.30); FREE T4 1.67 NG/DL (0.76-1.46); GFR AFRICAN AMERICAN 58 ML/MIN (>=60); GFR NON AFRICAN AMERICAN 50 ML/MIN (>=60); GLUCOSE, SERUM 104 MG/DL (60-99); POTASSIUM, SERUM 3.6 MMOL/L (3.5-5.3); SODIUM, SERUM 137 MMOL/L (135-148)
[2016-12-04 03:46] LABS: CK-MB 0.9 NG/ML; TROPONIN I 0.51 NG/ML (<0.05); ULTRASENSITIVE TSH 0.756 MCIU/ML (0.358-3.740)
[2016-12-04 10:27] LABS: CK-MB 0.6 NG/ML; CPK 52 U/L (0-200); TROPONIN I 0.49 NG/ML (<0.05)
[2016-12-05 03:54] LABS: HEMATOCRIT 30.8 % (40.0-51.0); HEMOGLOBIN 10.2 g/dL (13.6-17.8); MEAN CORPUS HGB CONC 33.1 g/dL (32.0-36.0); MEAN CORPUSCULAR HEMOGLOB 30.1 pg (26.0-34.0); MEAN CORPUSCULAR VOLUME 90.9 fL (80-100); MEAN PLATELET VOLUME 8.8 fL (9.2-13.0); PLATELET COUNT 330 10/3/uL (150-400); RBC DISTRIBUTION WIDTH 13.5 % (12.0-16.0); RED CELL COUNT 3.39 10/6/uL (4.7-6.1); WHITE BLOOD CELLS 7.3 10/3/uL (4.5-10.5)
[2016-12-05 03:55] LABS: MANUAL DIFF YES %
[2016-12-05 04:01] LABS: INTERNATIONAL NORMAL RATI 2.7 UNITS (-); PROTIME (NOT ORD) 28.8 SEC (12.0-14.5)
[2016-12-05 04:14] LABS: A/G RATIO 0.6 (0.7-1.9); ALBUMIN 2.4 G/DL (3.5-5.0); ALKALINE PHOSPHATASE 79 U/L (45-117); BUN (BLOOD UREA NITROGEN) 21 MG/DL (6-23); CALCIUM, SERUM 8.5 MG/DL (8.5-10.4); CHLORIDE, SERUM 101 MMOL/L (96-112); CO2 (CARBON DIOXIDE) 28 MMOL/L (24-34); CREATININE 1.37 MG/DL (0.70-1.30); GFR AFRICAN AMERICAN 59 ML/MIN (>=60); GFR NON AFRICAN AMERICAN 51 ML/MIN (>=60); GLOBULIN 4.1 G/DL (2.5-4.1); GLUCOSE, SERUM 93 MG/DL (60-99); PHOSPHORUS, SERUM 3.2 MG/DL (2.5-4.5); POTASSIUM, SERUM 3.8 MMOL/L (3.5-5.3); SGOT(AST) 19 U/L (5-40); SGPT(ALT) 32 U/L (5-65); SODIUM, SERUM 137 MMOL/L (135-148); TOTAL BILIRUBIN 0.6 MG/DL (0-1.2); TOTAL PROTEIN 6.5 G/DL (6.0-8.5)
[2016-12-05 04:18] LABS: BASOPHILS 1 %; BASOPHILS ABSOLUTE (CALC) 0.07 10/3/uL (0.0-0.16); EOSINOPHILS 1 %; EOSINOPHILS ABSOLUTE (CALC) 0.07 10/3/uL (0.0-0.53); LYMPHOCYTES 14 %; LYMPHOCYTES ABSOLUTE (CALC) 1.02 10/3/uL (0.67-4.30); MONOCYTES 6 %; MONOCYTES ABSOLUTE (CALC) 0.44 10/3/uL (0.21-1.20); NEUTROPHILS ABSOLUTE (CALC) 5.69 10/3/uL (2.02-8.40); PLATELET ESTIMATE ADQ (ADEQUATE); RBC MORPHOLOGY NORM (NORMAL); SEGMENTED NEUTROPHIL (0) 78 %; TOTAL NUCLEATED CELLS 100
[2016-12-06 06:21] LABS: BASOPHILS 0.1 %; BASOPHILS ABSOLUTE 0.01 10/3/uL (0.0-0.16); EOSINOPHILS 3.2 %; EOSINOPHILS ABSOLUTE 0.22 10/3/uL (0.0-0.53); HEMATOCRIT 32.4 % (40.0-51.0); HEMOGLOBIN 10.6 g/dL (13.6-17.8); IMMATURE GRANULOCYTES 0.3 %; IMMATURE GRANULOCYTES ABSOLUTE 0.02 10/3/uL (0.0-0.11); LYMPHOCYTES 10.6 %; LYMPHOCYTES ABSOLUTE 0.72 10/3/uL (0.67-4.30); MEAN CORPUS HGB CONC 32.7 g/dL (32.0-36.0); MEAN CORPUSCULAR HEMOGLOB 30.3 pg (26.0-34.0); MEAN CORPUSCULAR VOLUME 92.6 fL (80-100); MEAN PLATELET VOLUME 8.9 fL (9.2-13.0); MONOCYTES 12.8 %; MONOCYTES ABSOLUTE 0.87 10/3/uL (0.21-1.20); NEUTROPHILS ABSOLUTE 4.95 10/3/uL (2.02-8.40); PLATELET COUNT 327 10/3/uL (150-400); RBC DISTRIBUTION WIDTH 13.7 % (12.0-16.0); WHITE BLOOD CELLS 6.8 10/3/uL (4.5-10.5)
[2016-12-06 06:22] LABS: MANUAL DIFF NO %
[2016-12-06 06:25] LABS: INTERNATIONAL NORMAL RATI 2.4 UNITS (-); PROTIME (NOT ORD) 25.8 SEC (12.0-14.5)
[2016-12-06 06:38] LABS: A/G RATIO 0.6 (0.7-1.9); ALBUMIN 2.5 G/DL (3.5-5.0); ALKALINE PHOSPHATASE 83 U/L (45-117); BUN (BLOOD UREA NITROGEN) 23 MG/DL (6-23); CALCIUM, SERUM 8.8 MG/DL (8.5-10.4); CHLORIDE, SERUM 102 MMOL/L (96-112); CO2 (CARBON DIOXIDE) 27 MMOL/L (24-34); CREATININE 1.37 MG/DL (0.70-1.30); GFR AFRICAN AMERICAN 59 ML/MIN (>=60); GFR NON AFRICAN AMERICAN 51 ML/MIN (>=60); GLOBULIN 4.4 G/DL (2.5-4.1); GLUCOSE, SERUM 99 MG/DL (60-99); POTASSIUM, SERUM 4.4 MMOL/L (3.5-5.3); SGOT(AST) 24 U/L (5-40); SGPT(ALT) 32 U/L (5-65); SODIUM, SERUM 136 MMOL/L (135-148); TOTAL BILIRUBIN 0.8 MG/DL (0-1.2); TOTAL PROTEIN 6.9 G/DL (6.0-8.5)
[2016-12-06] MEDS ORDERED: SPIRO25 PO (09:47)
[2017-03-14] MEDS ORDERED: COZ25 PO (15:35)
== END 2016-12-06 11:52 | disposition home health service (06) | DRG 280 ==
LOC: 5NO 19:37
PROVIDERS: Internal Medicine
DX: I13.0 Hypertensive heart and chronic kidney disease with heart failure and stage 1 through stage 4 chronic kidney disease, or unspecified chronic kidney disease (principal); I21.09 ST elevation (STEMI) myocardial infarction involving other coronary artery of anterior wall; I50.23 Acute on chronic systolic (congestive) heart failure; N17.9 Acute kidney failure, unspecified; N18.3 Chronic kidney disease, stage 3 (moderate); I48.2 Chronic atrial fibrillation; Z79.01 Long term (current) use of anticoagulants; E87.6 Hypokalemia; Z85.038 Personal history of other malignant neoplasm of large intestine; Z85.528 Personal history of other malignant neoplasm of kidney; Z95.5 Presence of coronary angioplasty implant and graft; Z79.82 Long term (current) use of aspirin; Z79.02 Long term (current) use of antithrombotics/antiplatelets; E78.5 Hyperlipidemia, unspecified
CPT/HCPCS: 71010; 80048; 80053; 80069; 82533; 82550; 82553; 83735; 83880; 83930; 84439; 84443; 84484; 85025; 85610; 93005; A9270-GY